=== PATIENT | female | born 1935 | race Caucasian/White ===

== ENCOUNTER 2018-03-21 18:20 | Inpatient (IN) | payer MEDICARE, MEDICAID ==
--- NOTE | 2018-03-21 18:54 | ED Physician Chart ---
ED Chief Complaint/HPI - Patient Information Date Seen:: 03/21/18 Time Seen:: 18:40 Chief Complaint:: AMS History of Present Illness:: onset x 2 days of AMS, ALOC, flank/back pain, and dysuria; no report of trauma, H/As, S/T, neck pain, cough, C/P, SOB, Abd. Pain, A/N/V/D/C, fever, chills, or bleeding Allergies:: Allergies Allergy/AdvReac Type Severity Reaction Status Date / Time Penicillins [PCN] Allergy Verified 03/21/18 18:40 Vitals:: Vital Signs - 8 hr 03/21/18 18:41 Temp 97.7 F HR 77 RR 16 BP 126/65 O2 Sat % 95 Historian:: Patient, EMS Review:: Nurse's Note Reviewed, Old Chart Reviewed, EMS run form Reviewed ED Review of Systems - Review of Systems General/Constitutional: Fever, No chills, No weight loss, Weakness, No diaphoresis, No edema, No loss of appetite Skin: No skin lesions, No rash, No bruising Head: No headache, No light-headedness Eyes: No loss of vision, No pain, No diplopia ENT: No earache, No nasal drainage, No sore throat, No tinnitus Neck: No neck pain, No swelling, No thyromegaly, No stiffness, No mass noted Cardio Vascular: No chest pain, No palpitations, No PND, No orthopnea, No edema Pulmonary: No SOB, No cough, No sputum, No wheezing GI: No nausea, No vomiting, No diarrhea, No pain, No melena, No hematochezia, No constipation, No hematemesis G/U: Dysuria, Frequency, No hematuria, No nacturia Rotary Machine Operator: No vaginal discharge, No abnormal vaginal bleed, No contraction Musculoskeletal: No bone or joint pain, No back pain, No muscle pain Endocrine: No polyuria, No polydipsia Psychiatric: No prior psych history, No depression, No anxiety, No suicidal ideation, No homicidal ideation, No auditory hallucination, No visual hallucination Hematopoietic: No bruising, No lymphadenopathy Allergic/Immuno: No urticaria, No angioedema Neurological: No syncope, No focal symptoms, Weakness, No paresthesia, No headache, No seizure, No dizziness, No confusion, No vertigo ED Past Medical History - Past Medical History Obtainable: Yes Past Medical History: HTN, Dyslipidemia, PUD/GERD, Arthritis, Dementia Family History: Diabetes Melitus, HTN Social History: , Care Facility Surgical History: None Psychiatricy History: Dementia Medication: Reviewed Family Medical History - Family Member Mother History Unknown: Yes ED Physical Exam - Physical Examination General/Constitutional: Awake, Well-developed, well-nourished, Alert, No distress, GCS 15, Non-toxic appearing, Ambulatory Head: Atraumatic Eyes: Lids, conjuctiva normal, PERRL, EOMI Skin: Nl inspection, No rash, No skin lesions, No ecchymosis, Well hydrated, No lymphadenopathy ENMT: External ears, nose nl, TM canals nl, Nasal exam nl, Lips, teeth, gums nl , Oropharynx nl, Tonsils nl Neck: Nontender, Full ROM w/o pain, No JVD, No nuchal rigidity, No bruit, No mass, No stridor Respiratory: Nl effort/Exclusion, Clear to Auscultation, No Wheeze/Rhonchi/Rales Cardio Vascular: RRR, No murmur, gallop, rubs, NL S1 S2, Carotid/Femoral/Distal pulses equal bilaterally GI: No tenderness/rebounding/guarding, No organomegaly, No hernia, Normal BS's, Nondistended, No mass/bruits, No McBurney tenderness : No CVA tenderness Extremities: No tenderness or effusion, Full ROM, normal strength in all extremities, No edema, Normal digits & nails Neuro/Psych: Alert/oriented, DTR's symmetric, Normal sensory exam, Normal motor strength, Judgement/insight normal, Mood normal, Normal gait, No focal deficits Misc: Normal back, No paraspinal tenderness ED Labs/Radiology/EKG Results - Lab Results Comments:: K+: 3.3 - Radiology Results Comments:: NAD ED Septic Shock - . Is Septic Shock (SBP<90, OR Lactate>4 mmol\L) present?: No - <6hrs of presentation: Vital Signs: Vital Signs - 8 hr 03/21/18 18:41 Temp 97.7 F HR 77 RR 16 BP 126/65 O2 Sat % 95 ED Reassessment (Disposition) - Reassessment Reassessment Condition:: Improved - Diagnosis Diagnosis:: Hypokalemia; ALOC; AMS; Dehydration; - Aftercare/Follow up Instructions Aftercare/Follow-Up Instructions:: Counseled pt regarding lab results/diagnosis & need follow up, Counseled pt & family regarding lab results/diagnosis & need follow up - Patient Disposition Discharge/Transfer:: Acute Care w/in this hosp Accepting Physician:: Dr. Cadena Time Called:: 2029 Time Responded:: 20:30 Admitted to:: Med/Surg Spoke to:: Dr. Cadena Admitting Medical Physician:: Dr. Cadena Condition at Disposition:: Stable, Improved
[2018-03-21 19:41] LABS: % BASOPHILS 0.8 % (0.0-2.0); % EOSINOPHILS 6.4 % (0.0-5.0); % MONOCYTES 9.3 % (2.0-10.0); % NEUTROPHILS 64.5 % (40.0-80.0); EOSINOPHILE ABSOLUTE 0.3 Th/cmm (0.1-0.4); HEMATOCRIT 41.3 % (41.0-60); HEMOGLOBIN 14.1 gm/dL (12-16); MEAN CELL VOLUME 90.1 fl (81-100); MEAN CORPUSCULAR HEMOGLOBIN 30.7 pg (27.0-31.0); MEAN PLATELET VOLUME 7.3 fl; MONOCYTE ABSOLUTE 0.5 Th/cmm (0.3-1.0); NEUTROPHILE ABSOLUTE 3.4 Th/cmm (1.8-8.0); PLATELET COUNT 215 Th/cmm (150-400); RED BLOOD COUNT 4.58 Mil/cmm (3.80-5.20); RED CELL DISTRIBUTION WIDTH 12.4 % (11.5-20.0); WHITE BLOOD COUNT 5.2 Th/cmm (4.8-10.8)
[2018-03-21 19:58] LABS: PROTHROMBIN TIME (TEST) 10.4 SECONDS (9.5-11.5)
[2018-03-21 20:01] LABS: ALB/GLOB RATIO 0.9 (1.0-1.8); ALBUMIN 3.4 gm/dL (3.7-5.3); ALKALINE PHOSPHATASE 83 U/L (34-104); ANION GAP 8.6 (7.0-16.0); BILIRUBIN,TOTAL 0.7 mg/dL (0.3-1.0); BUN - UREA NITROGEN 18 mg/dL (7-25); CALCIUM SERUM 8.9 mg/dL (8.6-10.3); CARBON DIOXIDE 24.7 mEq/L (21.0-31.0); CHLORIDE 107 mEq/L (98-107); CREATININE - SERUM 0.6 mg/dL (0.6-1.2); CREATININE KINASE 22 U/L (30-223); GLUCOSE 96 mg/dL (70-105); POTASSIUM SERUM 3.3 mEq/L (3.5-5.1); SGOT 13 U/L (13-39); SGPT/ALT 8 U/L (7-52); SODIUM SERUM 137 mEq/L (136-145); TOTAL PROTEIN,SERUM 7.4 gm/dL (6.0-8.3)
[2018-03-21] MEDS ORDERED: Potassium Chloride 20 mEq ER Tab PO ONE ×2 (20:31→20:36)
[2018-03-21] MEDS ORDERED: Non-Formulary Item 1 EA (Acetaminophen [Pain Reliever] 650 MG) PO PRN (23:19)
[2018-03-21] MEDS ORDERED: HYDROCODONE PO PRN (23:20)
[2018-03-21] MEDS ORDERED: Maalox 30 mL Cup PO PRN (23:20)
[2018-03-21] MEDS ORDERED: ACETAMINOPHEN PO PRN (23:20)
[2018-03-22 06:31] LABS: % BASOPHILS 0.7 % (0.0-2.0); % EOSINOPHILS 6.9 % (0.0-5.0); % LYMPHOCYTES 18.6 % (20.0-50.0); % MONOCYTES 10.6 % (2.0-10.0); % NEUTROPHILS 63.2 % (40.0-80.0); EOSINOPHILE ABSOLUTE 0.3 Th/cmm (0.1-0.4); HEMATOCRIT 38.3 % (41.0-60); LYMPHOCYTE ABSOLUTE 0.7 Th/cmm (1.5-3.0); MEAN CELL VOLUME 88.6 fl (81-100); MEAN CORPUSCULAR HEMOGLOBIN 30.1 pg (27.0-31.0); MEAN CORPUSCULAR HGB CONC 33.9 pg (28.0-36.0); MEAN PLATELET VOLUME 7.6 fl; MONOCYTE ABSOLUTE 0.4 Th/cmm (0.3-1.0); NEUTROPHILE ABSOLUTE 2.6 Th/cmm (1.8-8.0); PLATELET COUNT 205 Th/cmm (150-400); RED BLOOD COUNT 4.33 Mil/cmm (3.80-5.20); RED CELL DISTRIBUTION WIDTH 12.3 % (11.5-20.0)
[2018-03-22 06:41] LABS: ANION GAP 7.6 (7.0-16.0); BUN - UREA NITROGEN 17 mg/dL (7-25); CALCIUM SERUM 8.7 mg/dL (8.6-10.3); CARBON DIOXIDE 23.8 mEq/L (21.0-31.0); CHLORIDE 108 mEq/L (98-107); CREATININE - SERUM 0.6 mg/dL (0.6-1.2); GLUCOSE 87 mg/dL (70-105); POTASSIUM SERUM 3.4 mEq/L (3.5-5.1); SODIUM SERUM 136 mEq/L (136-145)
[2018-03-22] MEDS ORDERED: Hydrocodone/APAP 5mg/325mg Tab PO PRN ×2 (07:52→08:00)
[2018-03-22] MEDS ORDERED: PROTEIN HYDROLYS PO SCH (09:00)
[2018-03-22] MEDS ORDERED: AMINO ACIDS PO SCH (09:00)
[2018-03-22] MEDS ORDERED: D5-0.45NS 1,000 ML IV SCH (09:00)
[2018-03-22] MEDS: Pantoprazole 40 mg EC Tab PO SCH (09:42)
--- NOTE | 2018-03-22 09:51 | Diagnostic Imaging Report ---
Portable chest x-ray History: Cough Allowing for portable technique the heart size is normal. No focal pulmonary parenchymal processes. No hilar or mediastinal abnormalities. Impression: No acute abnormalities.
--- NOTE | 2018-03-22 09:53 | Diagnostic Imaging Report ---
Portable chest x-ray HISTORY: Pain There is a poor inspiration. Heart size difficult to assess. The poor inspiration has resulted in accentuation of the lower interstitial lung markings. Allowing for this factor, no focal processes are seen. Atherosclerotic calcification seen in the aorta. IMPRESSION: 1. Allowing for a poor inspiration, no acute focal pulmonary processes
[2018-03-22] MEDS: D5-0.45NS w/10 mEq KCL 1,000 ML IV SCH (11:17)
--- NOTE | 2018-03-22 14:39 | History & Physical ---
ADMIT DATE: 03/21/2018 CHIEF COMPLAINT: Severe weakness, worsening confusion, and low back pain by the nursing staff. HISTORY OF PRESENT ILLNESS: The patient is an 83-year-old female admitted from Emergency Room due to multiple medical conditions. The patient was very weak with failure to thrive and complained severe low back pain and low abdominal pain in the usp for the past few days with progressive worsening. Her mental status worsened more significantly in the past 1 or 2 days. She is very lethargic. There is suspicion for urinary tract infection, but the patient refused to have urine collected either naturally or straight cath. A chest x-ray was not done because the patient refused ____ from confusion. Due to poor p.o. intake, the patient's potassium was low at 3.3 in the Emergency Room and she was supplemented. The patient's troponin was less than 0.01. PAST MEDICAL HISTORY: Including hypertension, degenerative joint disease, gastroesophageal reflux disease, constipation, urinary tract infection, and pneumonia. REVIEW OF SYSTEMS: This cannot be reliably obtained as the patient is confused and refused to answer questions or is unable to answer questions. PHYSICAL EXAMINATION: GENERAL: Well-developed, thin female, in no acute distress. SKIN: Warm and dry. VITAL SIGNS: Basically stable. HEENT: Normocephalic and atraumatic. Pupils are equal, round, and react to light and accommodation. CHEST: Symmetrical. LUNGS: Few rhonchi appreciated. CARDIAC: Normal sinus rhythm. S1 and S2. ABDOMEN: Benign, soft, and nontender. There is mild tenderness in the suprapubic area. Bowel sounds positive. EXTREMITIES: No clubbing, cyanosis, or edema . PSYCHIATRIC: Linear and logical. NEUROLOGICAL: Unremarkable. LABORATORY DATA: Labs reviewed, seen from computer. Potassium 3.3. Troponin less than 0.01, albumin 3.4. ASSESSMENT AND PLAN: 1. Altered level of consciousness intermittently in the past few days with progressive worsening: Unclear etiology, but for her age is probably due to urinary tract infection and/or pneumonia; however, the patient is still confused and she refused to have UA done, a chest x-ray and I have tried to convince the patient and I am not clear if she really understands this. I ordered blood culture. 2. Severe weakness: Fall precautions and physical therapy. 3. Failure to thrive: Workup in progress. 4. Suprapubic mild abdominal pain: I ordered UA, urine culture, and CEA and CA-125. 5. Hypokalemia: Due to poor p.o. intake and supplemented, we will repeat to make sure the patient is properly supplemented. 6. Low back pain, probably due to sciatic related to her age. 7. History of hypertension. 8. History of urinary tract infection: The patient had refused to her urine collection initially. 9. 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 10. DVT prophylaxis. [facility]# [id number]
--- NOTE | 2018-03-22 23:18 | Progress Notes ---
DATE: 03/22/2018 SUBJECTIVE: The patient is very confused and lethargic, afebrile. OBJECTIVE: VITAL SIGNS: Basically stable. HEENT: Normocephalic, atraumatic. Pupils equal, round and react to light and accommodation. CHEST: Symmetrical. LUNGS: Few rhonchi appreciated. CARDIAC: Normal sinus rhythm, S1, S2. ABDOMEN: Benign, soft, nontender. EXTREMITIES: No clubbing or cyanosis. Edema bilaterally appreciated 2+ equally. NEUROLOGICAL: Unremarkable. LABORATORY DATA: Reviewed. Significant for leukopenia with potassium 3.4, which is after 40 mEq KCl given in the Emergency Room. Additionally, the patient's white count decreased to 4000 from 5200 in the Emergency Room here. ASSESSMENT AND PLAN: 1. Acute leukopenia: Rule out sepsis and order blood culture and urine culture and IV fluid. We will repeat CBC in the morning. Check lactic acid level as well. 2. Hypokalemia: She will get IV fluid D5 half normal saline with 5 mEq KCl at 80 mL per hour. 3. Failure to thrive: Workup in progress. 4. Severe weakness: Fall precautions and physical therapy. 5. DVT prophylaxis. 6. Low back pain, improving. 7. Altered level of conscious due to metabolic encephalopathy and dementia. 8. Early dementia: Add Aricept to the patient's current medication regimen. 9. History of hypertension. 10. History of urinary tract infection and pneumonia. JOB# [id number]
[2018-03-23] MEDS: D5-0.45NS w/10 mEq KCL 1,000 ML IV SCH ×2 (03:00→15:45)
[2018-03-23 06:59] LABS: % BASOPHILS 0.5 % (0.0-2.0); % LYMPHOCYTES 19.1 % (20.0-50.0); % MONOCYTES 9.1 % (2.0-10.0); % NEUTROPHILS 66.3 % (40.0-80.0); EOSINOPHILE ABSOLUTE 0.2 Th/cmm (0.1-0.4); HEMATOCRIT 39.1 % (41.0-60); HEMOGLOBIN 13.5 gm/dL (12-16); LYMPHOCYTE ABSOLUTE 0.8 Th/cmm (1.5-3.0); MEAN CELL VOLUME 89.6 fl (81-100); MEAN CORPUSCULAR HEMOGLOBIN 30.9 pg (27.0-31.0); MEAN CORPUSCULAR HGB CONC 34.5 pg (28.0-36.0); MEAN PLATELET VOLUME 7.7 fl; MONOCYTE ABSOLUTE 0.4 Th/cmm (0.3-1.0); NEUTROPHILE ABSOLUTE 2.8 Th/cmm (1.8-8.0); PLATELET COUNT 217 Th/cmm (150-400); RED BLOOD COUNT 4.37 Mil/cmm (3.80-5.20); RED CELL DISTRIBUTION WIDTH 12.2 % (11.5-20.0); WHITE BLOOD COUNT 4.2 Th/cmm (4.8-10.8)
[2018-03-23 07:22] LABS: ANION GAP 7.8 (7.0-16.0); BUN - UREA NITROGEN 14 mg/dL (7-25); CALCIUM SERUM 8.6 mg/dL (8.6-10.3); CARBON DIOXIDE 25.3 mEq/L (21.0-31.0); CHLORIDE 106 mEq/L (98-107); CREATININE - SERUM 0.6 mg/dL (0.6-1.2); GLUCOSE 95 mg/dL (70-105); POTASSIUM SERUM 3.1 mEq/L (3.5-5.1); SODIUM SERUM 136 mEq/L (136-145)
[2018-03-23] MEDS: Pantoprazole 40 mg EC Tab PO SCH (09:42)
[2018-03-23] MEDS ORDERED: D5-0.45NS 1,000 ML IV SCH (23:00)
[2018-03-24] MEDS: Levofloxacin 500mg/100mL 500 MG/100 ML BAG IV SCH ×2 (00:38→23:08)
--- NOTE | 2018-03-24 01:27 | Progress Notes ---
DATE: 03/23/2018 SUBJECTIVE: The patient is confused, lethargic and afebrile. OBJECTIVE: VITAL SIGNS: Basically, stable. HEENT: Normocephalic and atraumatic. Pupils equal, round, reactive to light and accommodation. CHEST: Symmetrical. LUNGS: Few wheezing appreciated with rhonchi at the lung base. CARDIAC: Normal sinus rhythm. S1 and S2. ABDOMEN: Benign, soft and nontender. EXTREMITIES: No clubbing, cyanosis or edema. Bilateral ____ equally. NEUROLOGICAL: Unremarkable. LABORATORY TESTING: Reviewed as seen from computer. Positive MRSA nares. Potassium 3.1 despite on IV fluid with potassium supplement. ASSESSMENT AND PLAN: 1. Hypokalemia: 40 mEq KCl p.o. x 1 ordered and we will increase potassium containing IV fluid. 2. Altered level of consciousness due to metabolic encephalopathy and dementia. 3. Noncompliance : Education provided daily basis with some effect. 4. Failure to thrive: Multifactorial. 5. Leukopenia, slightly improving. We will repeat CBC in the morning as well. 6. Low back pain, improving. 7. Early dementia. 8. History of hypertension. JOB# [id number]
[2018-03-24 05:58] LABS: URINE SOURCE MIDSTREAM
[2018-03-24 06:19] LABS: URINE BILIRUBIN NEGATIVE (NEGATIVE); URINE BLOOD NEGATIVE (NEGATIVE); URINE GLUCOSE (UA) NEGATIVE (NEGATIVE); URINE KETONE NEGATIVE (NEGATIVE); URINE LEUKOCYTE ESTERASE NEGATIVE (NEGATIVE); URINE NITRATE NEGATIVE (NEGATIVE); URINE PH 6.5 (4.6 - 8.0); URINE PROTEIN NEGATIVE (NEGATIVE); URINE UROBILINOGEN 0.2 E.U./dL (0.2 - 1.0)
[2018-03-24 06:42] LABS: URINE CLARITY CLEAR (CLEAR); URINE COLOR YELLOW
[2018-03-24 07:05] LABS: % BASOPHILS 1.1 % (0.0-2.0); % EOSINOPHILS 4.9 % (0.0-5.0); % MONOCYTES 10.1 % (2.0-10.0); % NEUTROPHILS 67.9 % (40.0-80.0); BASOPHILE ABSOLUTE 0.1 Th/cumm (0-0.2); EOSINOPHILE ABSOLUTE 0.2 Th/cmm (0.1-0.4); HEMOGLOBIN 13.2 gm/dL (12-16); LYMPHOCYTE ABSOLUTE 0.8 Th/cmm (1.5-3.0); MEAN CELL VOLUME 89.3 fl (81-100); MEAN CORPUSCULAR HEMOGLOBIN 30.9 pg (27.0-31.0); MEAN CORPUSCULAR HGB CONC 34.7 pg (28.0-36.0); MEAN PLATELET VOLUME 7.2 fl; MONOCYTE ABSOLUTE 0.5 Th/cmm (0.3-1.0); NEUTROPHILE ABSOLUTE 3.2 Th/cmm (1.8-8.0); PLATELET COUNT 216 Th/cmm (150-400); RED BLOOD COUNT 4.26 Mil/cmm (3.80-5.20); RED CELL DISTRIBUTION WIDTH 12.1 % (11.5-20.0); WHITE BLOOD COUNT 4.8 Th/cmm (4.8-10.8)
[2018-03-24 08:09] LABS: CA 125 (OVARIAN) 23.4 U/mL (0.0-38.1); CARCINOEMBRYONIC ANTIGEN 1.7 ng/mL (0.0-4.7)
[2018-03-24] MEDS: Pantoprazole 40 mg EC Tab PO SCH (08:14)
[2018-03-24] MEDS ORDERED: Potassium Chloride 20 mEq ER Tab PO ONE (09:00)
[2018-03-24] MEDS ORDERED: Probiotic Screen MC PRN (09:30)
[2018-03-24] MEDS: D5-0.45NS w/10 mEq KCL 1,000 ML IV SCH (16:34)
[2018-03-25] MEDS: D5-0.45NS w/10 mEq KCL 1,000 ML IV SCH ×2 (06:23→18:17)
[2018-03-25] MEDS: Pantoprazole 40 mg EC Tab PO SCH (09:56)
[2018-03-25] MEDS: Lactobacillus Rhamnosus GG 15 Billion CFU CAP.SPRINK PO SCH (09:56)
[2018-03-26] MEDS: Levofloxacin 500mg/100mL 500 MG/100 ML BAG IV SCH (00:23)
[2018-03-26 06:29] LABS: % BASOPHILS 0.1 % (0.0-2.0); % EOSINOPHILS 6.3 % (0.0-5.0); % LYMPHOCYTES 17.8 % (20.0-50.0); % NEUTROPHILS 61.8 % (40.0-80.0); EOSINOPHILE ABSOLUTE 0.3 Th/cmm (0.1-0.4); HEMATOCRIT 38.3 % (41.0-60); LYMPHOCYTE ABSOLUTE 0.9 Th/cmm (1.5-3.0); MEAN CELL VOLUME 90.1 fl (81-100); MEAN CORPUSCULAR HEMOGLOBIN 30.6 pg (27.0-31.0); MONOCYTE ABSOLUTE 0.7 Th/cmm (0.3-1.0); NEUTROPHILE ABSOLUTE 3.1 Th/cmm (1.8-8.0); PLATELET COUNT 202 Th/cmm (150-400); RED BLOOD COUNT 4.25 Mil/cmm (3.80-5.20); RED CELL DISTRIBUTION WIDTH 12.3 % (11.5-20.0)
[2018-03-26 07:34] LABS: ANION GAP 7.7 (7.0-16.0); BUN - UREA NITROGEN 10 mg/dL (7-25); CALCIUM SERUM 8.7 mg/dL (8.6-10.3); CHLORIDE 107 mEq/L (98-107); CREATININE - SERUM 0.7 mg/dL (0.6-1.2); GLUCOSE 95 mg/dL (70-105); POTASSIUM SERUM 3.7 mEq/L (3.5-5.1); SODIUM SERUM 136 mEq/L (136-145)
[2018-03-26] MEDS: D5-0.45NS w/10 mEq KCL 1,000 ML IV SCH ×2 (08:36→18:11)
[2018-03-26] MEDS: Pantoprazole 40 mg EC Tab PO SCH (09:52)
[2018-03-26] MEDS: Lactobacillus Rhamnosus GG 15 Billion CFU CAP.SPRINK PO SCH (09:53)
[2018-03-27] MEDS: Levofloxacin 500mg/100mL 500 MG/100 ML BAG IV SCH (00:04)
[2018-03-27] MEDS: Lactobacillus Rhamnosus GG 15 Billion CFU CAP.SPRINK PO SCH (10:07)
[2018-03-27] MEDS: Pantoprazole 40 mg EC Tab PO SCH (10:08)
--- NOTE | 2018-03-27 18:55 | Progress Notes ---
DATE: 03/26/2018 SUBJECTIVE: The patient is confused, agitated from time to time. OBJECTIVE: VITAL SIGNS: Basically stable. HEENT: Normocephalic, atraumatic. Pupils equal, round, react to light and accommodation. CHEST: Symmetrical. LUNGS: Few wheezing appreciated. CARDIAC: Normal sinus rhythm. S1, S2. ABDOMEN: Benign, soft, nontender. EXTREMITIES: No clubbing, cyanosis, edema bilaterally. . NEUROLOGICAL: Unremarkable. LABORATORY DATA: Reviewed. ASSESSMENT AND PLAN: 1. Altered level of consciousness on and off. We will observe closely. 2. Agitation: Ativan p.r.n. 3. Failure to thrive, improving. 4. Hypokalemia, corrected. 5. Leukopenia, resolved. 6. Dementia: Probably due to Alzheimer disease. I will start the patient on Aricept and Namenda. 7. Hypertension, controlled. 8. DVT prophylaxis. 9. Discharge planning. 10. Noncompliance: Education provided. JOB# [id number]
--- NOTE | 2018-03-27 23:56 | Discharge Summary ---
DATE OF DISCHARGE: 03/27/2018 FINAL DIAGNOSES: 1. Altered level of consciousness, improving. 2. Severe weakness stabilizing. 3. Failure to thrive improved. 4. Sciatic with severe low back pain, improving. 5. Hypokalemia, supplemented. 6. Leukopenia, resolved. 7. Noncompliance with education provided. 8. Chronic pain syndrome, improving. HOSPITAL COURSE: The patient is an 83-year-old female admitted today due to altered level of consciousness, severe weakness with failure to thrive and the patient also has severe hypokalemia due to poor p.o. intake. She also complained of severe low back pain in the snf, but the pain improved afterwards. On admission, the patient's white count was low, but she was ruled out for sepsis. The urine and blood culture were both negative. The patient was confused, noncompliance from time to time. Due to hospitalization the patient provided with some benefit. Due to anxiety and depression, and hallucinations the patient is accepted to [facility]. DISCHARGE CONDITION: Stable. DISPOSITION: [facility]. DISCHARGE MEDICATION: Continue medication from [facility]. DIET: Cardiac, soft diet. ACTIVITY: Bed rest with physical therapy. FOLLOWUP: Follow up soon with a [facility] Unit. [facility]# [id number]
== END 2018-03-27 08:20 | DRG 640 ==
LOC: ER 18:20 → MSI 20:32
PROVIDERS: ADMIT Internal Medicine; ATTEND Internal Medicine
DX: E87.6 Hypokalemia (principal); G93.41 Metabolic encephalopathy; R62.7 Adult failure to thrive; I10 Essential (primary) hypertension; D72.819 Decreased white blood cell count, unspecified; M19.90 Unspecified osteoarthritis, unspecified site; K21.9 Gastro-esophageal reflux disease without esophagitis; M54.42 Lumbago with sciatica, left side; M54.41 Lumbago with sciatica, right side; E78.5 Hyperlipidemia, unspecified; G89.4 Chronic pain syndrome; F41.9 Anxiety disorder, unspecified; F32.9 Major depressive disorder, single episode, unspecified; F03.90 Unspecified dementia, unspecified severity, without behavioral disturbance, psychotic disturbance, mood disturbance, and anxiety; Z53.29 Procedure and treatment not carried out because of patient's decision for other reasons; E86.0 Dehydration; Z88.0 Allergy status to penicillin; Z87.11 Personal history of peptic ulcer disease; Z83.3 Family history of diabetes mellitus; Z82.49 Family history of ischemic heart disease and other diseases of the circulatory system; Z71.89 Other specified counseling; Z87.01 Personal history of pneumonia (recurrent); Z87.440 Personal history of urinary (tract) infections; Z91.19 Patient's noncompliance with other medical treatment and regimen
CPT/HCPCS: 36415-UA; 71045-TC; 80048-TC; 80053-TC; 81003-TC; 82378-90; 82550-TC; 83605; 83880-TC; 84443-TC; 84484-TC; 85025-TC; 85610-TC; 85730-TC; 86304-90; 87086-90; 93005; 97530; J1956; J2060; X3904; Z7610

== ENCOUNTER 2018-03-27 21:05 | Inpatient (IN) | payer MEDICARE, MEDICAID ==
[2018-03-27 22:00] VITALS: BP 121/67
[2018-03-27] MEDS ORDERED: Hydrocodone/APAP 5mg/325mg Tab PO PRN ×2 (22:38→22:47)
[2018-03-27] MEDS ORDERED: Maalox 30 mL Cup PO PRN (22:48)
[2018-03-28] MEDS: Pantoprazole 40 mg EC Tab PO SCH (06:34)
[2018-03-28] MEDS ORDERED: AMINO ACIDS PO SCH (09:00)
[2018-03-28] MEDS ORDERED: PROTEIN HYDROLYS PO SCH (09:00)
[2018-03-28] MEDS: Multivitamin Tab PO SCH (11:41)
[2018-03-28] MEDS: Lactobacillus Rhamnosus GG 15 Billion CFU CAP.SPRINK PO SCH (11:44)
--- NOTE | 2018-03-28 23:28 | History & Physical ---
ADMIT DATE: 03/28/2018 CHIEF COMPLAINT: Anxiety, depression, weakness, and low back pain. HISTORY OF PRESENT ILLNESS: The patient is an 83-year-old female admitted to Geropsych Unit of [facility] due to anxiety, depression, and psychosis. The patient is very anxious and depressed from time to time and also has some hallucination from time to time. She is very weak and complaining of severe low back pain from time to time. The patient definitely is confused as well from time to time. She is very weak with failure to thrive. For the past week, the patient also had hypokalemia, which was supplemented. She also has a history of hypertension and urinary tract infection as well as dementia. PAST MEDICAL HISTORY: Hypertension, hypokalemia, mild dementia, urinary tract infection, anxiety, depression, and mild psychosis. PAST SURGICAL HISTORY: Denies significant past surgical history. MEDICATIONS: See medication reconciliation list. ALLERGIES: PENICILLIN. FAMILY HISTORY: Noncontributory. SOCIAL HISTORY: No history of tobacco, alcohol, or IV drug abuse. REVIEW OF SYSTEMS: As per HPI. PHYSICAL EXAMINATION: GENERAL: Well-developed and thin female in no acute distress. SKIN: Warm and dry. VITAL SIGNS: Basically stable. HEENT: Normocephalic and atraumatic. Pupils equal, round, and react to light and accommodation. CHEST: Symmetrical. LUNGS: Clear to auscultation bilaterally. HEART: Normal sinus rhythm, S1 and S2. ABDOMEN: Benign, soft, and nontender. EXTREMITIES: No clubbing, cyanosis, or edema ____. NEUROLOGICAL: Unremarkable. LABORATORY DATA: Ordered. ASSESSMENT AND PLAN: 1. Altered level of consciousness, on and off: We will observe her closely. 2. Anxiety/depression: Psychiatry consultation, close observation, and adjust medications as needed. 3. Failure to thrive. 4. Urinary tract infection: We will repeat a UA to make sure the patient is clear for urinary tract infection. 5. History of hypertension: Close monitoring. 6. Dementia/early Alzheimer disease: Continue Aricept. 7. Degenerative joint disease. 8. Chronic pain syndrome: Continue pain medication, adjust accordingly. 9. Insomnia. 10. Gastroesophageal reflux disease: Continue proton pump inhibitor. 11. Deep venous thrombosis prophylaxis. JOB# [id number]
--- NOTE | 2018-03-29 03:38 | Psychosocial Evaluation ---
DATE OF SERVICE: 03/28/2018 MENTAL STATUS EXAM AGE: 83. SEX: Female. PHYSICIAN: Dr. Laurent. CHIEF COMPLAINT: Confusion and severe weakness. HISTORY OF PRESENT ILLNESS: The patient is an 83-year-old female who was admitted to the hospital from the Emergency Room because of multiple medical conditions and after the patient was medically stable in the med-surg unit, was transferred to Geropsych Unit to continue her treatment. The patient has been feeling very weak with failure, failure to thrive and also the patient has been complaining of low back pain and low abdominal pain in the care home where she has been living. The patient has been having this complaint for several days. Also, her mental status has been getting worse and the patient seems to be lethargic. The patient also possibly has had urinary tract infection and the patient was refusing to give any urine samples. Also, the patient has refused to have chest x-ray and was uncooperative in the care home where she lives. Also, her appetite has been much decreased as well as her energy level has been very low. The patient has been depressed. She also has been confused and unable to answer questions coherently because of her weakness and confusion. PAST PSYCHIATRIC HISTORY: The patient has a history of what seems to be dementia. PAST MEDICAL HISTORY: The patient has hypertension, gastroesophageal reflux disease, urinary tract infection, pneumonia, constipation, and degenerative joint disease. PAST MEDICAL HISTORY: The patient is confused and refused to answer any of the questions related to other medical problems. SOCIAL HISTORY: The patient lives in a care home. Anxious. Slightly confused and unable to answer any of my questions coherently. Poor insight and poor judgment. ASSESSMENT: PRIMARY DIAGNOSIS: Major depression, severe, recurrent, with psychotic features. SECONDARY DIAGNOSIS: Dementia, moderate to severe, with psychotic features. MENTAL STATUS EXAMINATION: The patient appears slightly older than stated age. Anxious. Flat affect. In a depressed mood. Thought processes are with poverty of speech. The patient denies any hallucinations or delusions, but actively responding to stimuli. The patient did not answer question regarding suicide or homicide. The patient is alert and disoriented to time, place, and person, but oriented to the situation. Impaired immediate, and recent memory, but intact remote memory. Poor insight and poor judgment. TREATMENT PLAN: We will monitor the patient's behavior closely. We will start the patient on Remeron at a dose of 7.5 mg and will adjust the dose. Also, will work on her ineffective coping and will evaluate her condition further. ESTIMATED LENGTH OF STAY: 5-7 days. PATIENT STRENGTHS AND WEAKNESSES: The patient's strength is that she is cooperative and compliant with medications. Weaknesses are ineffective coping. AFTER DISCHARGE PLAN: Outpatient treatments and followup will continue as an outpatient. CRITERIA FOR DISCHARGE: The patient will not be as depressed and will stabilize psychotropic medications and will establish outpatient treatment plans. JOB# [id number]
[2018-03-29] MEDS: Pantoprazole 40 mg EC Tab PO SCH (07:02)
[2018-03-29 08:29] LABS: % BASOPHILS 0.3 % (0.0-2.0); % EOSINOPHILS 6.2 % (0.0-5.0); % LYMPHOCYTES 14.7 % (20.0-50.0); % MONOCYTES 8.9 % (2.0-10.0); % NEUTROPHILS 69.9 % (40.0-80.0); EOSINOPHILE ABSOLUTE 0.3 Th/cmm (0.1-0.4); HEMATOCRIT 41.9 % (41.0-60); LYMPHOCYTE ABSOLUTE 0.7 Th/cmm (1.5-3.0); MEAN CELL VOLUME 90.5 fl (81-100); MEAN CORPUSCULAR HEMOGLOBIN 30.3 pg (27.0-31.0); MEAN CORPUSCULAR HGB CONC 33.5 pg (28.0-36.0); MEAN PLATELET VOLUME 7.5 fl; MONOCYTE ABSOLUTE 0.5 Th/cmm (0.3-1.0); NEUTROPHILE ABSOLUTE 3.6 Th/cmm (1.8-8.0); PLATELET COUNT 241 Th/cmm (150-400); RED BLOOD COUNT 4.64 Mil/cmm (3.80-5.20); RED CELL DISTRIBUTION WIDTH 12.5 % (11.5-20.0); WHITE BLOOD COUNT 5.1 Th/cmm (4.8-10.8)
[2018-03-29 09:04] LABS: ALB/GLOB RATIO 0.9 (1.0-1.8); ALBUMIN 3.5 gm/dL (3.7-5.3); ALKALINE PHOSPHATASE 68 U/L (34-104); ANION GAP 8.7 (7.0-16.0); BUN - UREA NITROGEN 19 mg/dL (7-25); CALCIUM SERUM 9.2 mg/dL (8.6-10.3); CARBON DIOXIDE 27.1 mEq/L (21.0-31.0); CHLORIDE 103 mEq/L (98-107); CREATININE - SERUM 0.7 mg/dL (0.6-1.2); GLUCOSE 97 mg/dL (70-105); MAGNESIUM 2.2 mg/dL (1.9-2.7); POTASSIUM SERUM 3.8 mEq/L (3.5-5.1); SGOT 13 U/L (13-39); SGPT/ALT 7 U/L (7-52); SODIUM SERUM 135 mEq/L (136-145); TOTAL PROTEIN,SERUM 7.3 gm/dL (6.0-8.3)
[2018-03-29] MEDS: Lactobacillus Rhamnosus GG 15 Billion CFU CAP.SPRINK PO SCH (10:53)
[2018-03-29] MEDS: Escitalopram Oxalate 5 mg Tab PO SCH (10:55)
[2018-03-29] MEDS: Multivitamin Tab PO SCH (10:56)
--- NOTE | 2018-03-29 23:39 | Progress Notes ---
DATE: SUBJECTIVE: Chart reviewed and the patient interviewed. Also discussed the patient's condition with the staff and reviewed records and labs. The patient is still depressed and withdrawn. She is also interacting minimally with peers and with others. The patient also is still feeling hopeless and helpless. Also, the thought processes are with poverty of speech. She also wants to be left alone. Otherwise, the patient is interacting more. The patient also is still restless. Otherwise, the patient is cooperative in regard to taking her medications. ASSESSMENT: The patient is still depressed. TREATMENT PLAN: We will continue monitoring her behavior closely. Also, we will start the patient on Lexapro 5 mg everyday and will work on behavior modifications and followup. [facility]# [id number]
[2018-03-30] MEDS: Pantoprazole 40 mg EC Tab PO SCH (06:39)
[2018-03-30] MEDS: Lactobacillus Rhamnosus GG 15 Billion CFU CAP.SPRINK PO SCH (09:22)
[2018-03-30] MEDS: Multivitamin Tab PO SCH (09:22)
[2018-03-30] MEDS: Escitalopram Oxalate 5 mg Tab PO SCH (09:22)
--- NOTE | 2018-03-30 19:46 | Progress Notes ---
DATE: 03/29/2018 SUBJECTIVE: The patient is lethargic, confused, agitated from time to time. OBJECTIVE: VITAL SIGNS: Basically stable. HEENT: Normocephalic, atraumatic. Pupils equal, round, react to light and accommodation. CHEST: Symmetrical. LUNGS: Clear to auscultation bilaterally. CARDIAC: Normal sinus rhythm. S1, S2. ABDOMEN: Benign, soft, nontender. EXTREMITIES: No clubbing, cyanosis, edema . NEUROLOGIC: Unremarkable. LABORATORY DATA: Reviewed as seen from the computer. ASSESSMENT AND PLAN: 1. Failure to thrive: Multifactorial. 2. Altered level of consciousness on and off: We will observe closely. 3. Anxiety, depression: Stable today. 4. History of psychosis: Close monitoring. 5. Degenerative joint disease. 6. Mild dementia/Alzheimer disease: Continue Aricept. 7. Insomnia: Improving. 8. Chronic pain syndrome due to degenerative joint disease and degenerative disk disease. Adjust medication as needed. 9. DVT prophylaxis. JOB# [id number]
--- NOTE | 2018-03-30 21:57 | Progress Notes ---
DATE: SUBJECTIVE: Chart reviewed and the patient interviewed. Also discussed the patient's condition with the staff and reviewed records and labs. The patient seems to be slightly calmer, but she is still confused and still has episodes of agitation and irritability. The patient also is still confused. The patient also still needs lots of redirections. She also still seems to be suspicious and paranoid and easily agitated. Otherwise, the patient is compliant with taking her medications with no side effects of medications. The patient continued to take Lexapro 5 mg every day as well as Aricept 10 mg. ASSESSMENT: The patient is still confused, psychotic, and depressed. TREATMENT PLAN: Continue to monitor her behavior and her condition closely and continue adjusting psychotropic medications and follow up closely. [facility]# [id number]
--- NOTE | 2018-03-31 03:40 | Progress Notes ---
DATE: 03/30/2018 SUBJECTIVE: The patient is confused, agitated, afebrile. OBJECTIVE: VITAL SIGNS: Basically stable. HEENT: Normocephalic, atraumatic. Pupils equal, round, react to light and accommodation. CHEST: Symmetrical. LUNGS: Clear to auscultation bilaterally. CARDIAC: Normal sinus rhythm. S1, S2. ABDOMEN: Benign, soft, nontender. EXTREMITIES: No clubbing, cyanosis or edema, bilaterally . NEUROLOGIC: Unremarkable. LABORATORY: Reviewed. ASSESSMENT AND PLAN: 1. Insomnia: May need to adjust patient's medication. For now, we will observe. 2. Failure to thrive: Multifactorial, but slightly improving. 3. Altered level of consciousness on and off. We will observe closely. 4. Anxiety/depression: Close monitoring for now. 5. History of psychosis: Psychiatrist consultation appreciated. 6. Chronic pain syndrome with degenerative joint disease and degenerative disk disease: Adjust medication as needed. 7. DVT prophylaxis. JOB# [id number]
[2018-03-31] MEDS: Pantoprazole 40 mg EC Tab PO SCH (06:32)
[2018-03-31] MEDS: Lactobacillus Rhamnosus GG 15 Billion CFU CAP.SPRINK PO SCH (08:55)
[2018-03-31] MEDS: Escitalopram Oxalate 5 mg Tab PO SCH (08:55)
[2018-03-31] MEDS: Multivitamin Tab PO SCH (08:55)
--- NOTE | 2018-03-31 21:26 | Progress Notes ---
DATE: 03/31/[address] Laurent. SUBJECTIVE: Case discussed with staff of the patient, reviewed records. This is an 83-year-old female who was admitted on 03/27/2018. She was confused, very depressed. She came from the Emergency Room because of multiple medical conditions and after she was medically stable in the med-surg unit, she was transferred to [facility] and continued treatment. The patient is feeling very weak, failure to thrive. Also, the patient has been complaining of low back pain and low abdominal pain in the retirement where she has been living, having does complain of several days. Her mental status has been getting worse. The patient is lethargic upon admission, probably had urinary tract infection. She refusing to give any urine sample, refused to have a chest x-ray, was uncooperative with the retirement. Appetite is much decreased. The patient has a history of dementia. The patient also has multiple medical conditions including hypertension and GERD. ALLERGIES: SHE IS ALLERGIC TO PENICILLIN. CURRENT MEDICATIONS: Amlodipine 10 mg daily, bisacodyl 10 mg daily, and Aricept 10 mg at bedtime. Lexapro was initiated on 03/29/2018, at 5 mg daily. She was on hydrocodone/APAP 1.5 tablet every 4 hours as needed, Ativan ____ as needed, metoprolol 25 mg twice a day, multivitamins 1 tablet daily, Protonix 40 mg before food, Ambien 5 mg at bedtime. ASSESSMENT AND PLAN: The patient continues to have low energy, low motivation, hardly says anything, easily overwhelmed. She is a high fall risk because of her failure to thrive, weakness and the medications. She is very depressed, unpredictable, impulsive, unable to participate in meaningful conversation or make safe plan for self-care. She sat on the dining table, hardly ate anything and we will continue to work with the patient in group therapy, milieu therapy, and adjust the medications as needed. JOB# [id number]
--- NOTE | 2018-04-01 04:36 | Progress Notes ---
DATE: 03/31/2018 SUBJECTIVE: The patient is confused, agitated from time to time. OBJECTIVE: VITAL SIGNS: Stable. HEENT: Normocephalic, atraumatic. Pupils equal, round, react to light and accommodation. CHEST: Symmetrical. LUNGS: Clear to auscultation bilaterally. CARDIAC: Normal sinus rhythm. S1, S2. ABDOMEN: Benign, soft, nontender. EXTREMITIES: No clubbing, cyanosis, edema bilaterally . NEUROLOGIC: Unremarkable. LABORATORY DATA: Reviewed. ASSESSMENT AND PLAN: 1. Chronic pain syndrome, adjust medications as needed. 2. Sciatica: Degenerative joint disk disease, radiographically no apparent fracture or dislocation. 3. Insomnia, improving. 4. Failure to thrive. 5. Altered level of consciousness, observe closely. 6. Agitation and anxiety: Close monitor and adjust medications as needed. 7. DVT prophylaxis. 8. Mild psychosis: Psychiatrist is on the case and appreciated. JOB# [id number]
[2018-04-01] MEDS: Pantoprazole 40 mg EC Tab PO SCH (06:52)
[2018-04-01] MEDS: Multivitamin Tab PO SCH (09:18)
[2018-04-01] MEDS: Lactobacillus Rhamnosus GG 15 Billion CFU CAP.SPRINK PO SCH (09:18)
[2018-04-01] MEDS: Escitalopram Oxalate 5 mg Tab PO SCH (09:18)
--- NOTE | 2018-04-01 21:05 | Progress Notes ---
DATE: 04/01/2018 SUBJECTIVE: Case discussed with staff of the patient, reviewed records. The patient continues to be unpredictable, impulsive, continues to have poor insight. She continues to complain of lower back pain, abdominal pain. Continues to have poor insight, staying in bed mostly, she is sleeping. Her sleep and appetite varies. Continues to be unpredictable and impulsive, unable to express herself fully though she can verbalize a few words, yet, her affect is flat. She is demented, confused. No side effects of the medication, no sedation, no nausea. She is also demented and we will continue outpatient group therapy, milieu therapy, and adjust the medications as needed. JOB# [id number]
--- NOTE | 2018-04-02 02:47 | Progress Notes ---
DATE: 04/01/2018 SUBJECTIVE: The patient is confused, agitated from time to time. OBJECTIVE: VITAL SIGNS: Basically stable. HEENT: Normocephalic, atraumatic. Pupils equal, round, and reactive to light and accommodation. CHEST: Symmetrical. LUNGS: Clear to auscultation bilaterally. CARDIAC: Normal sinus rhythm. S1, S2. ABDOMEN: Benign, soft, nontender. EXTREMITIES: No clubbing, cyanosis, edema bilaterally, 2+. NEUROLOGIC: Unremarkable. LABORATORY DATA: Reviewed. ASSESSMENT AND PLAN: 1. Failure to thrive: Observe closely. Workup is in progress. 2. Altered level of consciousness, improving. 3. Chronic pain syndrome. Adjust medications as needed. 4. Sciatica due to degenerative disk disease. 5. Anxiety and depression: Close monitor and adjust medication as needed. 6. Mild psychosis. 7. DVT prophylaxis. JOB# [id number]
[2018-04-02] MEDS: Pantoprazole 40 mg EC Tab PO SCH (06:46)
[2018-04-02] MEDS ORDERED: Escitalopram Oxalate 5 mg Tab PO SCH (10:00)
[2018-04-02] MEDS: Multivitamin Tab PO SCH (18:25)
[2018-04-02] MEDS: Lactobacillus Rhamnosus GG 15 Billion CFU CAP.SPRINK PO SCH (18:25)
--- NOTE | 2018-04-02 23:27 | Progress Notes ---
DATE: 04/02/2018 SUBJECTIVE: The patient is confused, agitated from time to time. OBJECTIVE: VITAL SIGNS: Basically stable. HEENT: Normocephalic, atraumatic. Pupils equal, round, react to light and accommodation. CHEST: Symmetrical. LUNGS: Few wheezing appreciated. HEART: Normal sinus rhythm. S1, S2. ABDOMEN: Benign, soft, nontender. EXTREMITIES: No clubbing, cyanosis or edema bilaterally 2+ . NEUROLOGIC: Unremarkable. LABORATORY DATA: Reviewed. ASSESSMENT AND PLAN: 1. Altered level of consciousness due to metabolic encephalopathy, dementia. We will observe closely. 2. Failure to thrive: Somewhat improving. 3. Chronic pain syndrome with degenerative disk disease and degenerative joint disease and will adjust medication as needed. 4. Anxiety and depression: Close monitoring. 5. Sciatica improving somewhat. 6. Mild psychosis. 7. DVT prophylaxis. JOB# [id number]
[2018-04-03] MEDS: Pantoprazole 40 mg EC Tab PO SCH (06:41)
[2018-04-03] MEDS: Lactobacillus Rhamnosus GG 15 Billion CFU CAP.SPRINK PO SCH (09:48)
[2018-04-03] MEDS: Multivitamin Tab PO SCH (09:48)
--- NOTE | 2018-04-03 09:56 | Progress Notes ---
DATE: 04/03/2018 Chart reviewed and the patient interviewed. Also the patient's condition with the staff and reviewed records and labs. The patient continued to be confused and forgetful. The patient needs lots of redirections and she has difficulty following the directions because of her confusion. Also, she has been having unpredictable behavior. The patient is depressed and wants to be left alone and she does not interact much with peers and with others. Also, during interview, the patient has flat affect and in a depressed mood and difficulty expressing herself all her feelings. ASSESSMENT: The patient is still depressed and confused. TREATMENT PLAN: We will continue monitoring her behavior and her condition closely. Also, we will increase Lexapro to 10 mg every day and we will continue to follow up her behavior and her condition closely. PSYCHIATRIC# [id number]
--- NOTE | 2018-04-03 20:21 | Progress Notes ---
DATE: SUBJECTIVE: Chart reviewed and the patient interviewed. Also discussed the patient's condition with the staff and reviewed records and labs. The patient continued to be easily agitated and the patient is forgetful. The patient also is still confused and still needs lots of redirections. She also is still depressed as noted and stays by herself in her room most of the time. Otherwise, the patient is compliant with taking her medications with no side effects of medications. ASSESSMENT: The patient is still depressed and is psychotic. TREATMENT PLAN: Continue to monitor her behavior and her condition closely. Also, Lexapro was increased yesterday to 10 mg every day. Continue same dose and continue to monitor her behavior closely. JOB# [id number]
--- NOTE | 2018-04-03 23:29 | Progress Notes ---
DATE: 04/03/2018 SUBJECTIVE: The patient is confused, agitated from time to time. OBJECTIVE: VITAL SIGNS: Basically stable. HEENT: Normocephalic, atraumatic. Pupils equal, round, and reactive to light and accommodation. CHEST: Symmetrical. LUNGS: Clear to auscultation bilaterally. HEART: Normal sinus rhythm. S1 and S2. ABDOMEN: Benign, soft, nontender. EXTREMITIES: No clubbing, cyanosis, or edema bilaterally, 2+ equally. NEUROLOGIC: Unremarkable. LABORATORY DATA: Reviewed. ASSESSMENT AND PLAN: 1. Failure to thrive, could be multifactorial, but somewhat improving. 2. Altered level of consciousness due to metabolic encephalopathy. 3. Dementia, observed closely. 4. Chronic pain syndrome due to degenerative joint disease and degenerative disk disease: Adjust medications as needed. 5. Anxiety and depression: Close monitoring. 6. Mild psychosis. 7. DVT prophylaxis. 8. History of constipation. 9. Mild Alzheimer disease: Continue Aricept. 10. Gastroesophageal reflux disease: Continue Protonix 40 mg daily. JOB# [id number]
[2018-04-04] MEDS: Pantoprazole 40 mg EC Tab PO SCH (06:47)
[2018-04-04] MEDS: Multivitamin Tab PO SCH (09:07)
[2018-04-04] MEDS: Lactobacillus Rhamnosus GG 15 Billion CFU CAP.SPRINK PO SCH (09:07)
[2018-04-04] MEDS: Docusate Sodium 100 mg/10 mL UD PO SCH (16:56)
--- NOTE | 2018-04-05 00:50 | Progress Notes ---
DATE: 04/04/2018 SUBJECTIVE: The patient is confused, agitated, and refusing to swallow her medication. OBJECTIVE: VITAL SIGNS: Basically Stable. HEENT: Normocephalic and atraumatic. Pupils equal, round, reactive to light and accommodation. CHEST: Symmetrical. LUNGS: Clear to auscultation bilaterally. CARDIAC: Normal sinus rhythm. S1 and S2. ABDOMEN: Benign, soft, and nontender. EXTREMITIES: No clubbing, cyanosis, or edema. NEUROLOGIC: Unremarkable. LABORATORY DATA: Reviewed. ASSESSMENT AND PLAN: 1. Dysphagia: Aspiration precaution to be emphasized and I have changed the Colace to liquid 10 mL p.o. b.i.d. 2. Altered level of consciousness: Due to metabolic encephalopathy and dementia. 3. Noncompliance: Education provided. 4. Anxiety/depression: Adjust medication and close monitoring. 5. Psychosis: Mild. 6. Alzheimer disease: Continue Aricept. 7. Deep venous thrombosis prophylaxis. JOB# [id number]
--- NOTE | 2018-04-05 01:30 | Progress Notes ---
DATE: 04/04/2018 SUBJECTIVE: Chart reviewed and the patient interviewed. Also discussed the patient's condition with the staff and reviewed records and labs. The patient is still in irritable and angry mood. The patient also is demanding. She also is still verbally abusive to staff and she is still having episodes of yelling and screaming and is still demanding. Otherwise, the patient is compliant with taking Lexapro with no side effects. ASSESSMENT: The patient is still agitated and psychotic. TREATMENT PLAN: We will continue to monitor her behavior and her condition closely. Also, we will start the patient on Abilify 5 mg everyday. Also, continue to monitor behavior and condition closely. JOB# [id number]
[2018-04-05] MEDS: Pantoprazole 40 mg EC Tab PO SCH (06:39)
[2018-04-05] MEDS: Lactobacillus Rhamnosus GG 15 Billion CFU CAP.SPRINK PO SCH (09:56)
[2018-04-05] MEDS: Multivitamin Tab PO SCH (09:56)
[2018-04-05] MEDS: Docusate Sodium 100 mg/10 mL UD PO SCH ×2 (09:58→16:28)
--- NOTE | 2018-04-06 03:17 | Progress Notes ---
DATE: 04/05/2018 SUBJECTIVE: The patient is confused, agitated from time to time. OBJECTIVE: VITAL SIGNS: Basically stable. HEENT: Normocephalic, atraumatic. Pupils equal, round, and reactive to light and accommodation. CHEST: Symmetrical. LUNGS: Clear to auscultation bilaterally. CARDIAC: Normal sinus rhythm. S1 and S2. ABDOMEN: Benign, soft, nontender. EXTREMITIES: No clubbing, cyanosis, edema bilaterally, 2+ equally. NEUROLOGICAL: Unremarkable. LABORATORY DATA: Reviewed. ASSESSMENT AND PLAN: 1. Altered level of consciousness on and off due to metabolic encephalopathy or dementia. We will observe closely. 2. Agitation on and off: Observe closely. 3. Dysphagia: Aspiration precaution to be exercised. 4. Noncompliance with education provided. 5. Anxiety/depression: Improving. 6. History of psychosis: Adjust medication. 7. Alzheimer disease: Continue Aricept. 8. DVT prophylaxis. JOB# [id number]
[2018-04-06] MEDS: Pantoprazole 40 mg EC Tab PO SCH (06:40)
[2018-04-06] MEDS: Multivitamin Tab PO SCH (08:57)
[2018-04-06] MEDS: Lactobacillus Rhamnosus GG 15 Billion CFU CAP.SPRINK PO SCH (08:58)
[2018-04-06] MEDS: Docusate Sodium 100 mg/10 mL UD PO SCH ×3 (08:59→17:05)
[2018-04-07] MEDS: Pantoprazole 40 mg EC Tab PO SCH (06:35)
[2018-04-07] MEDS: Docusate Sodium 100 mg/10 mL UD PO SCH ×3 (10:01→17:20)
[2018-04-07] MEDS: Lactobacillus Rhamnosus GG 15 Billion CFU CAP.SPRINK PO SCH (10:01)
[2018-04-07] MEDS: Multivitamin Tab PO SCH (10:01)
--- NOTE | 2018-04-07 11:08 | Progress Notes ---
DATE: 04/05/2018 SUBJECTIVE: Chart reviewed and the patient interviewed. Also discussed the patient's condition with the staff and reviewed records and labs. The patient is still anxious and is still in a depressed mood. The patient also is still easily agitated. The patient also is interacting minimally with others and wants to be left alone. ASSESSMENT: The patient is still depressed. TREATMENT PLAN: Continue to monitor behavior and condition closely. Also, working on ineffective coping and followup. JOB# [id number]
--- NOTE | 2018-04-07 11:44 | Progress Notes ---
DATE: SUBJECTIVE: Chart reviewed and the patient interviewed. Also discussed the patient's condition with the staff and reviewed records and labs. The patient is still anxious and she still wants to be left alone. The patient also is still demanding and easily irritable and agitated. The patient also had episodes of being verbally abusive to staff. Otherwise, the patient continued to comply with taking her medications and no side effect of Lexapro or Abilify. ASSESSMENT: The patient is still psychotic. TREATMENT PLAN: Continue to monitor behavior and condition closely. Also, continue to work on her irritability and agitation and will continue to follow up. JOB# [id number]
--- NOTE | 2018-04-07 21:21 | Progress Notes ---
DATE: Dr. Alfredo covering for Dr. Laurent. IDENTIFYING DATA: She is an 83-year-old female who was initially brought in here after the patient was observed to be very weak, failure to thrive, depressed, melancholic. Current medications include Abilify 5 mg a day, donepezil 10 mg, Lexapro 10 mg, metoprolol, Plavix, multivitamins, pantoprazole, Ambien. Today on [id number]-[id number] evaluation, the patient is observed to be neurocognitive impaired, mostly reports that everything is fine, poor historian in general. MENTAL STATUS EXAMINATION: Still depressed, aloof, disengaged, need simple redirections to provide simple ADLs. ASSESSMENT AND PLAN: The patient is an 83-year-old female neurocognitive impaired, severe depression and easily agitated. We will continue with the recently started Abilify 5 mg to have continue targeting the patient's irritable and labile behavior. JOB# [id number]
--- NOTE | 2018-04-08 00:26 | Progress Notes ---
DATE: 04/07/2018 SUBJECTIVE: The patient is confused, agitated from time to time. OBJECTIVE: VITAL SIGNS: Temperature is stable. HEENT: Normocephalic, atraumatic. Pupils equal, round, react to light and accommodation. CHEST: Symmetrical. LUNGS: Few wheezing appreciated. CARDIAC: Normal sinus rhythm. S1, S2. ABDOMEN: Benign, soft, nontender. EXTREMITIES: No clubbing, cyanosis, edema bilaterally, 2+. NEUROLOGIC: Unremarkable. LABORATORY DATA: Reviewed. ASSESSMENT AND PLAN: 1. Dysphagia: Aspiration precaution be exercised. 2. Altered level of consciousness on and off. We will observe closely. 3. Agitation, improving. 4. Depression, but no suicidal ideation. We will adjust medication. 5. Alzheimer disease: Continue Aricept due to its effectiveness even in the advanced Alzheimer disease, but the patient have early Alzheimer disease. 6. Psychosis: Adjust medication. 7. DVT prophylaxis. JOB# [id number]
[2018-04-08] MEDS: Pantoprazole 40 mg EC Tab PO SCH (06:48)
[2018-04-08 06:58] LABS: % EOSINOPHILS 4.5 % (0.0-5.0); % MONOCYTES 11.4 % (2.0-10.0); % NEUTROPHILS 68.1 % (40.0-80.0); BASOPHILE ABSOLUTE 0.1 Th/cumm (0-0.2); EOSINOPHILE ABSOLUTE 0.2 Th/cmm (0.1-0.4); HEMATOCRIT 41.7 % (41.0-60); HEMOGLOBIN 13.9 gm/dL (12-16); LYMPHOCYTE ABSOLUTE 0.8 Th/cmm (1.5-3.0); MEAN CORPUSCULAR HEMOGLOBIN 30.6 pg (27.0-31.0); MEAN CORPUSCULAR HGB CONC 33.3 pg (28.0-36.0); MEAN PLATELET VOLUME 7.4 fl; MONOCYTE ABSOLUTE 0.6 Th/cmm (0.3-1.0); NEUTROPHILE ABSOLUTE 3.7 Th/cmm (1.8-8.0); PLATELET COUNT 267 Th/cmm (150-400); RED BLOOD COUNT 4.54 Mil/cmm (3.80-5.20); WHITE BLOOD COUNT 5.4 Th/cmm (4.8-10.8)
[2018-04-08 07:43] LABS: ALB/GLOB RATIO 0.9 (1.0-1.8); ALBUMIN 3.3 gm/dL (3.7-5.3); ALKALINE PHOSPHATASE 64 U/L (34-104); ANION GAP 8.1 (7.0-16.0); BILIRUBIN,TOTAL 0.8 mg/dL (0.3-1.0); BUN - UREA NITROGEN 19 mg/dL (7-25); CALCIUM SERUM 8.8 mg/dL (8.6-10.3); CARBON DIOXIDE 27.2 mEq/L (21.0-31.0); CHLORIDE 100 mEq/L (98-107); CREATININE - SERUM 0.7 mg/dL (0.6-1.2); GLUCOSE 99 mg/dL (70-105); POTASSIUM SERUM 3.3 mEq/L (3.5-5.1); SGOT 14 U/L (13-39); SGPT/ALT 6 U/L (7-52); SODIUM SERUM 132 mEq/L (136-145)
[2018-04-08] MEDS: Docusate Sodium 100 mg/10 mL UD PO SCH ×2 (09:07→17:07)
[2018-04-08] MEDS: Lactobacillus Rhamnosus GG 15 Billion CFU CAP.SPRINK PO SCH (09:07)
[2018-04-08] MEDS: Multivitamin Tab PO SCH (09:08)
--- NOTE | 2018-04-08 18:41 | Progress Notes ---
DATE: 04/08/2018 SUBJECTIVE: The patient was seen and evaluated. The patient's chart reviewed. Today on [id number]-[id number] evaluation, the patient continues to be withdrawn, disengaged, minimally interactive, does not give much information. MENTAL STATUS EXAMINATION: Withdrawn and depressed. ASSESSMENT AND PLAN: The patient is an 83-year-old female neurocognitive impairment, depressed, withdrawn and disengaged. We will continue with primary psychiatrist's treatment plan and goals, which includes Abilify 5 mg a day, Aricept at 10, Lexapro 10 mg, metoprolol to continue to target the patient's severe depression. [facility]# [id number]
[2018-04-08] MEDS ORDERED: KCL 20mEq/100mL Premix 20 MEQ/100 ML PIGGYBACK IV ONE (23:09)
--- NOTE | 2018-04-09 01:31 | Progress Notes ---
DATE: 04/08/2018 SUBJECTIVE: The patient is confused, agitated from time to time. OBJECTIVE: VITAL SIGNS: Basically stable. HEENT: Normocephalic, atraumatic. Pupils equal, round, reactive to light. CHEST: Symmetrical. LUNGS: Few wheezing appreciated. CARDIOVASCULAR: Normal sinus rhythm. S1, S2. ABDOMEN: Benign, soft, nontender. EXTREMITIES: No clubbing, cyanosis, edema, bilaterally . NEUROLOGIC: Unremarkable. LABORATORY DATA: Significant for potassium 3.3, which is low. Sodium 133. ASSESSMENT AND PLAN: 1. Hypokalemia: Supplemented with 20 mEq KCl p.o. x 1. We will repeat BMP to make the patient properly supplemented. 2. Hyponatremia: Repeat BMP in the morning. 3. Altered level of consciousness due to metabolic encephalopathy and dementia. 4. Failure to thrive. 5. Agitation/depression, stable. 6. Alzheimer disease: Continue Aricept. 7. Chronic pain syndrome: Adjust pain medications as needed. 8. Weakness: Fall precaution and physical therapy as needed. 9. DVT prophylaxis. JOB# [id number]
[2018-04-09] MEDS: Pantoprazole 40 mg EC Tab PO SCH (06:40)
[2018-04-09 08:19] LABS: ANION GAP 9.3 (7.0-16.0); BUN - UREA NITROGEN 19 mg/dL (7-25); CALCIUM SERUM 8.9 mg/dL (8.6-10.3); CARBON DIOXIDE 27.1 mEq/L (21.0-31.0); CHLORIDE 102 mEq/L (98-107); CREATININE - SERUM 0.7 mg/dL (0.6-1.2); GLUCOSE 97 mg/dL (70-105); POTASSIUM SERUM 3.4 mEq/L (3.5-5.1); SODIUM SERUM 135 mEq/L (136-145)
[2018-04-09] MEDS: Lactobacillus Rhamnosus GG 15 Billion CFU CAP.SPRINK PO SCH (08:34)
[2018-04-09] MEDS: Docusate Sodium 100 mg/10 mL UD PO SCH ×2 (08:34→17:50)
[2018-04-09] MEDS: Multivitamin Tab PO SCH (08:34)
--- NOTE | 2018-04-09 22:43 | Progress Notes ---
DATE: 04/09/[address] Alfredo covering for Dr. Laurent. I appreciate this medical assessment by Dr. Cadena. He is currently treating the hypokalemia with 20 mEq of potassium chloride and pending BMP. Nursing staff overnight reports the patient continues to be disengaged, minimally interactive. Today on [id number]-tdss evaluation, the patient presents withdrawn, disengaged. MENTAL STATUS EXAMINATION: Withdrawn, disengaged, aloof. ASSESSMENT AND PLAN: This is an 83-year-old female neurocognitively impaired. We will continue with the current medication regimen as medications was recently increased and adjusted to target the patient's severe depression. JOB# [id number]
--- NOTE | 2018-04-09 23:21 | Progress Notes ---
DATE: 04/09/2018 SUBJECTIVE: The patient is confused, agitated, afebrile. OBJECTIVE: VITAL SIGNS: Basically stable. HEENT: Normocephalic, atraumatic. Pupils round, react to light and accommodation. CHEST: Symmetrical. LUNGS: Clear to auscultation bilaterally. CARDIAC: Normal sinus rhythm, S1 and S2. ABDOMEN: Benign, soft, nontender. EXTREMITIES: No clubbing, cyanosis, edema, bilaterally 2+. CRANIOLOGICAL: Unremarkable. LABORATORY DATA: Reviewed. Significant for hypokalemia, potassium 3.4, sodium 135. ASSESSMENT AND PLAN: 1. Altered level of consciousness due to metabolic encephalopathy. We will observe closely. 2. Hypokalemia: Additional 4 mEq KCl p.o. x 1 ordered. We will repeat BMP in the morning to make sure the patient probably supplement. 3. Failure to thrive. 4. Depression, anxiety, and mild psychosis: Medication has been adjusted and closely monitor. 5. Hyponatremia, improving. 6. Alzheimer disease: Continue Aricept. 7. Chronic pain syndrome: Adjust pain medication as needed. 8. DVT prophylaxis. 9. Weakness: Fall precaution. Physical therapy. JOB# [id number]
[2018-04-10] MEDS: Pantoprazole 40 mg EC Tab PO SCH (06:51)
[2018-04-10 08:07] LABS: ANION GAP 8.7 (7.0-16.0); BUN - UREA NITROGEN 19 mg/dL (7-25); CALCIUM SERUM 8.7 mg/dL (8.6-10.3); CARBON DIOXIDE 27.9 mEq/L (21.0-31.0); CHLORIDE 101 mEq/L (98-107); CREATININE - SERUM 0.7 mg/dL (0.6-1.2); GLUCOSE 101 mg/dL (70-105); POTASSIUM SERUM 3.6 mEq/L (3.5-5.1); SODIUM SERUM 134 mEq/L (136-145)
[2018-04-10] MEDS: Lactobacillus Rhamnosus GG 15 Billion CFU CAP.SPRINK PO SCH (09:20)
[2018-04-10] MEDS: Docusate Sodium 100 mg/10 mL UD PO SCH ×2 (09:22→17:36)
[2018-04-10] MEDS: Multivitamin Tab PO SCH (09:22)
--- NOTE | 2018-04-11 00:07 | Progress Notes ---
DATE: 04/10/2018 SUBJECTIVE: The patient is currently in the hospital, history of multiple medical problems, also possibly and likely dementia. The patient is AO to name and where she is. She does not know why she is here. She states the year is 2012. She states the month is December. The patient is seen by Dr. Alfredo over the past couple of days, noted to be quite withdrawn, confused, disengaged, minimally interactive, anhedonic, apathetic. Medications were recently adjusted. ASSESSMENT: The patient with ongoing behavioral disturbances, confusions and noted to be impulsive, unpredictable and withdrawn. PLAN: We will continue to monitor. We will continue to titrate and adjust medications. Medications were reviewed. The patient currently on Aricept, Lexapro, Abilify. JOB# [id number]
[2018-04-11] MEDS: Pantoprazole 40 mg EC Tab PO SCH (06:31)
[2018-04-11] MEDS: Docusate Sodium 100 mg/10 mL UD PO SCH ×3 (08:16→16:19)
[2018-04-11] MEDS: Multivitamin Tab PO SCH (08:16)
[2018-04-11] MEDS: Lactobacillus Rhamnosus GG 15 Billion CFU CAP.SPRINK PO SCH (08:16)
--- NOTE | 2018-04-11 20:06 | Progress Notes ---
DATE: 04/10/2018 SUBJECTIVE: The patient is confused, agitated, afebrile. OBJECTIVE: VITAL SIGNS: Stable. HEENT: Normocephalic, atraumatic. Pupils equal, round, and reactive to light and accommodation. CHEST: Symmetrical. LUNGS: Few wheezes appreciated. HEART: Normal sinus rhythm. S1, S2. ABDOMEN: Benign, soft, nontender. EXTREMITIES: No clubbing, cyanosis, or edema bilaterally, 2+ equally. NEUROLOGIC: Unremarkable. LABORATORY DATA: Reviewed. ASSESSMENT AND PLAN: 1. Altered level of consciousness due to metabolic encephalopathy and dementia and we will observe closely. 2. Hypokalemia, supplemented and corrected. 3. Failure to thrive, improving. 4. Depression, anxiety, and mild psychosis: Follow recommendation by our psychiatrist and appreciate their service. 5. Alzheimer's disease: Continue Aricept. 6. History of chronic pain syndrome, adjusting her medications as needed. 7. DVT prophylaxis. 8. Severe weakness. 9. Discharge planning: Going back to [facility] that is where the patient came from. JOB# [id number]
[2018-04-12] MEDS: Pantoprazole 40 mg EC Tab PO SCH (06:31)
[2018-04-12] MEDS: Multivitamin Tab PO SCH (08:35)
[2018-04-12] MEDS: Docusate Sodium 100 mg/10 mL UD PO SCH ×2 (08:35→17:04)
[2018-04-12] MEDS: Lactobacillus Rhamnosus GG 15 Billion CFU CAP.SPRINK PO SCH (08:36)
--- NOTE | 2018-04-12 16:52 | Progress Notes ---
DATE: 04/11/2018 SUBJECTIVE: The patient is confused, agitated from time to time. OBJECTIVE: VITAL SIGNS: Basically stable. HEENT: Normocephalic, atraumatic. Pupils equal, round, reactive to light and accommodation. CHEST: Symmetrical. LUNGS: Few wheezing appreciated. HEART: Normal sinus rhythm. S1, S2. ABDOMEN: Benign, soft, nontender. EXTREMITIES: No clubbing, cyanosis, or edema bilaterally ____. NEUROLOGIC: Unremarkable. LABORATORY DATA: Reviewed. ASSESSMENT AND PLAN: 1. Failure to thrive: Multifactorial, somewhat improving. 2. Altered level of consciousness due to metabolic encephalopathy and dementia. 3. Hypokalemia, supplemented. 4. Depression/anxiety and mild psychosis: Observe closely and follow up recommendations by Psychiatry. 5. Alzheimer disease: Continue Aricept 10 mg p.o. daily. 6. Chronic pain syndrome: Adjust the medication as needed. 7. Weakness: Fall precaution. 8. DVT prophylaxis. JOB# [id number]
--- NOTE | 2018-04-12 18:39 | Progress Notes ---
DATE: 04/11/2018 PSYCHIATRIC PROGRESS NOTE: Chart reviewed and the patient interviewed. Also discussed the patient's condition with the staff and reviewed records and labs. The patient is still depressed and is still withdrawn. The patient also is still confused and forgetful and she is selectively mute. She also still needs redirections because of her confusion. The patient's affect is flat. On the other hand, the patient continued to comply with taking Abilify at a dose of 5 mg everyday and Aricept and Lexapro with no side effect. ASSESSMENT: The patient is still confused and is still paranoid. TREATMENT PLAN: Continue adjusting psychotropic medications and monitor her behavior and her condition closely. JOB# [id number]
[2018-04-13] MEDS: Pantoprazole 40 mg EC Tab PO SCH (06:31)
[2018-04-13] MEDS: Docusate Sodium 100 mg/10 mL UD PO SCH ×2 (09:33→16:13)
[2018-04-13] MEDS: Multivitamin Tab PO SCH (09:35)
[2018-04-13] MEDS: Lactobacillus Rhamnosus GG 15 Billion CFU CAP.SPRINK PO SCH (09:35)
--- NOTE | 2018-04-13 11:47 | Progress Notes ---
DATE: 04/13/[address] Laurent. Case was discussed with staff of the patient, reviewed records. This is one close to me as I have seen her before covering for Dr. Laurent. The patient does have episodes of yelling and screaming. Continues to be unpredictable, impulsive, needing redirection. Very poor insight. Unable to make safe plan for self-care. She uses sometimes a wheelchair, sometimes she walks. She is intrusive, unpredictable and impulsive. No side effects of the medications, no sedation, no nausea, and no extrapyramidal symptoms. Her Seroquel was increased to 300 mg at bedtime and she is on Depakote 500 mg twice a day and we will continue outpatient group therapy, milieu therapy, and adjust medication as needed. [facility]# [id number]
--- NOTE | 2018-04-13 11:54 | Progress Notes ---
DATE: 04/13/[address] Laurent. Case was discussed with staff of the patient, reviewed the records. This is a well-known case to me as I have seen her before covering for Dr. Laurent. The patient continues to be confused, unpredictable, impulsive, having episodes of being aggressive, forgetful, selectively mute. Continues to need redirection. Continues to have poor insight. No side effects with the medication, no sedation, no nausea, no extrapyramidal symptoms. She is on Abilify 10 mg a day, Aricept 10 mg at bedtime, and Lexapro 10 mg daily with no side effects, no sedation, no nausea, no extrapyramidal symptoms. We will continue the patient in group therapy, milieu therapy, adjust medications as needed. JOB# [id number]
--- NOTE | 2018-04-13 12:35 | Progress Notes ---
DATE: 04/12/2018 SUBJECTIVE: The patient is confused, agitated from time to time. OBJECTIVE: VITAL SIGNS: Basically stable. HEENT: Normocephalic, atraumatic. Pupils equal round, react to light and accommodation. CHEST: Symmetrical. LUNGS: Clear to auscultation bilaterally. CARDIAC: Normal sinus rhythm. S1 and S2. ABDOMEN: Benign, soft, nontender. EXTREMITIES: No clubbing, cyanosis, edema ____. NEUROLOGIC: Unremarkable. LABORATORY DATA: Reviewed. ASSESSMENT AND PLAN: 1. Altered level of consciousness on and off due to metabolic encephalopathy, dementia, and we will observe closely. 2. Failure to thrive. 3. Hypokalemia, supplemented. 4. Depression, anxiety, and mild psychosis: Observe closely and adjust medication as needed. 5. Alzheimer disease: Continue Aricept 10 mg p.o. daily. 6. Chronic pain syndrome, improving. 7. Weakness. 8. Deep venous thrombosis prophylaxis. JOB# [id number]
--- NOTE | 2018-04-13 23:39 | Progress Notes ---
DATE: 04/12/2018 SUBJECTIVE: Chart reviewed and the patient interviewed. Also discussed the patient's condition with the staff and reviewed records and labs. The patient is still withdrawn and is still depressed and confused at the same time. The patient also is interacting minimally with peers and with others and she wants to be left alone. The patient also is forgetful and she is having difficulty following directions. When the staff brought her not to get out of the home, she refused to get out of the room and she gets paranoia. Otherwise, the patient is compliant with taking medications with no side effects of medications. ASSESSMENT: The patient is still depressed and confused and psychotic. TREATMENT PLAN: We will continue Lexapro 10 mg every day. We will increase Abilify to 10 mg every day. We will continue to monitor her behavior and her condition closely. JOB# [id number]
--- NOTE | 2018-04-14 01:52 | Progress Notes ---
DATE: 04/13/2018 SUBJECTIVE: The patient is confused and agitated from time to time. OBJECTIVE: VITAL SIGNS: Basically stable. HEENT: Normocephalic, atraumatic. Pupils equal, round, reactive to light and accommodation. CHEST: Symmetrical. LUNGS: Few wheezing appreciated. CARDIAC: Normal sinus rhythm. S1, S2. ABDOMEN: Benign, soft, nontender. EXTREMITIES: No clubbing, cyanosis, or edema . NEUROLOGICAL: Unremarkable. LABORATORY DATA: Lab ordered. ASSESSMENT AND PLAN: 1. Altered level of consciousness, on and off. We will observe closely. 2. Agitation, improving somewhat. 3. Noncompliance: Education provided. 4. Altered level of consciousness, on and off, but improving.. 5. Failure to thrive, improving. 6. Chronic pain syndrome. Adjust medication as needed. 7. Weakness and difficulty walking: Physical therapy and fall precautions. 8. DVT prophylaxis. JOB# [id number]
[2018-04-14] MEDS: Pantoprazole 40 mg EC Tab PO SCH (06:39)
[2018-04-14 07:45] LABS: ANION GAP 6.5 (7.0-16.0); BUN - UREA NITROGEN 17 mg/dL (7-25); CALCIUM SERUM 8.8 mg/dL (8.6-10.3); CARBON DIOXIDE 28.3 mEq/L (21.0-31.0); CHLORIDE 102 mEq/L (98-107); CREATININE - SERUM 0.7 mg/dL (0.6-1.2); GLUCOSE 96 mg/dL (70-105); POTASSIUM SERUM 3.8 mEq/L (3.5-5.1); SODIUM SERUM 133 mEq/L (136-145)
[2018-04-14] MEDS: Multivitamin Tab PO SCH (08:40)
[2018-04-14] MEDS: Docusate Sodium 100 mg/10 mL UD PO SCH ×2 (08:40→16:28)
[2018-04-14] MEDS: Lactobacillus Rhamnosus GG 15 Billion CFU CAP.SPRINK PO SCH (08:40)
--- NOTE | 2018-04-14 19:07 | Progress Notes ---
DATE: 04/14/2018 SUBJECTIVE: The patient in the hospital, he has been here for quite some weeks. The patient with history of dementia, apparently with psychotic features. Dr. Fish is seeing the patient over the past few days. The patient is very confused, unpredictable, impulsive, disoriented and selectively mute, still aggressive, ongoing mood symptoms. The patient slept for about 8 hours last night, calm during the nighttime. Periods of disorientation, confusion, noted to be withdrawn, at times disrobing herself, mumbling at times, stating she is in the hospital to "take care of things" and then saying "thank you" and not answering any further questions. ASSESSMENT AND PLAN: The patient remains symptomatic, not safe for a lower level of care. We will continue to monitor and follow up. JOB# [id number]
[2018-04-15] MEDS: Pantoprazole 40 mg EC Tab PO SCH (06:36)
[2018-04-15] MEDS: Docusate Sodium 100 mg/10 mL UD PO SCH ×2 (09:07→16:12)
[2018-04-15] MEDS: Lactobacillus Rhamnosus GG 15 Billion CFU CAP.SPRINK PO SCH (09:07)
[2018-04-15] MEDS: Multivitamin Tab PO SCH (09:07)
--- NOTE | 2018-04-15 09:15 | Progress Notes ---
DATE: 04/15/2018 SUBJECTIVE: The patient with history of dementia. Still noted to be confused, disoriented, nonsensical on exam. The patient remains quiet, depressed. She slept for about 6-7 hours last night. Staff noting she remains withdrawn, mostly in her room. At times, will attempt to disrobe herself, poor orientation, needing constant redirection. Concerns for ability to care for herself at a lower level of care given her ongoing symptoms. Medications were noted including doses and frequencies. ASSESSMENT: The patient remains symptomatic, still confused, still with ongoing behavioral disturbances, confusion, attempting to disrobe. PLAN: We will continue to monitor. We will continue to adjust and titrate medications as tolerated. We will monitor for any overt side effects. JOB# [id number]
--- NOTE | 2018-04-15 23:05 | Progress Notes ---
DATE: 04/15/2018 SUBJECTIVE: The patient is confused, agitated sometimes . PHYSICAL EXAMINATION: VITAL SIGNS: Basically stable. HEENT: Normocephalic, atraumatic. Pupils equal, round, react to light and accommodation. CHEST: Symmetrical. LUNGS: Few wheezing appreciated. CARDIAC: Normal sinus rhythm. S1, S2. ABDOMEN: Benign, soft, nontender. EXTREMITIES: No clubbing, cyanosis, edema bilaterally, 2+. NEUROLOGIC: Unremarkable. LABORATORY DATA: Reviewed. ASSESSMENT AND PLAN: 1. Chronic pain syndrome: Adjust pain medication as needed. 2. Altered level of consciousness due to metabolic encephalopathy and dementia. 3. Alzheimer disease: Continue Aricept. 4. Weakness: Fall precaution and physical therapy. 5. Hypokalemia, supplemented. 6. Urinary tract infection, treated. 7. History of hypertension. 8. DVT prophylaxis. 9. Failure to thrive, improving somewhat. 10. Agitation on and off. We will observe closely. JOB# [id number]
[2018-04-16] MEDS: Pantoprazole 40 mg EC Tab PO SCH (06:34)
[2018-04-16] MEDS: Lactobacillus Rhamnosus GG 15 Billion CFU CAP.SPRINK PO SCH (14:53)
[2018-04-16] MEDS: Docusate Sodium 100 mg/10 mL UD PO SCH ×2 (14:53→17:14)
[2018-04-16] MEDS: Multivitamin Tab PO SCH (14:53)
[2018-04-17] MEDS: Pantoprazole 40 mg EC Tab PO SCH (06:38)
[2018-04-17] MEDS: Lactobacillus Rhamnosus GG 15 Billion CFU CAP.SPRINK PO SCH (08:56)
[2018-04-17] MEDS: Docusate Sodium 100 mg/10 mL UD PO SCH (08:56)
[2018-04-17] MEDS: Multivitamin Tab PO SCH (08:56)
--- NOTE | 2018-04-17 20:43 | Progress Notes ---
DATE: 04/16/2018 SUBJECTIVE: Chart reviewed and the patient interviewed. Also, discussed the patient's condition with the staff and reviewed records and labs. The patient is still in a depressed mood. The patient also is still suspicious and paranoid and seems to be preoccupied, but less than before and she seems to be much better and easier to redirect her. The patient also is compliant with taking her medications with no side effects of medications. ASSESSMENT: The patient is still depressed, but seems to be less paranoid. TREATMENT PLAN: We will continue monitoring her behavior and her condition closely. Also, continue to work with caser up in regard to discharge plans and planning to discharge the patient today if [facility] will accept her. Otherwise, we will continue to work on discharge plans and placement issue. JOB# [id number]
--- NOTE | 2018-04-18 02:53 | Progress Notes ---
DATE: 04/17/2018 SUBJECTIVE: Chart reviewed and the patient interviewed. Also discussed the patient's condition with the staff and reviewed records and labs. The patient was supposed to be discharged from the hospital, but for some reason onsite case manager did not discharge the patient yet and the patient is still in the hospital and he did not discharge yesterday. The patient is supposed to be discharged to [facility]. The patient is calm and cooperative with her treatment with no side effects of medications. TREATMENT PLAN: Planning to discharge the patient today if the onsite case manager arranges for her discharge. Also, outpatient treatment and followup will continue as an outpatient in the [facility]. JOB# [id number]
--- NOTE | 2018-04-18 03:17 | Discharge Summary ---
DATE OF DISCHARGE: 04/17/2018 FINAL DIAGNOSES: 1. Altered level of consciousness, improved. 2. Agitation, improved. 3. Psychosis, stabilized. 4. Depression, improved. 5. Chronic pain syndrome, improved. 6. Failure to thrive, improved. 7. Hypertension, stable. 8. Hypokalemia, corrected. 9. Hyponatremia, stabilized. HOSPITAL COURSE: The patient is an 83-year-old female admitted due to altered level of consciousness, failure to thrive, urinary tract infection, chronic pain syndrome, Alzheimer disease, severe weakness, anxiety, depression. The patient is an 83-year-old female admitted with above-mentioned medical conditions. The patient was treated accordingly. A psychiatrist consultation requested and appreciated. The patient's medication was adjusted. Anxiety, depression, psychosis improved. The patient's hypokalemia was supplemented properly and on time and was corrected. The patient finally accepted back to [facility]. DISCHARGE CONDITION: Stable. DISPOSITION: Regular care. DISCHARGE MEDICATIONS: Continue medications from here. DIET: Cardiac, soft diet. ACTIVITY: Bed rest with physical therapy. FOLLOWUP: One week. JOB# [id number]
== END 2018-04-17 14:10 | DRG 885 ==
LOC: GERO 21:05
PROVIDERS: ADMIT Psychiatry & Neurology Psychiatry; ATTEND Psychiatry & Neurology Psychiatry
DX: F33.3 Major depressive disorder, recurrent, severe with psychotic symptoms (principal); F02.81 Dementia in other diseases classified elsewhere, unspecified severity, with behavioral disturbance; G93.41 Metabolic encephalopathy; N39.0 Urinary tract infection, site not specified; E87.1 Hypo-osmolality and hyponatremia; G30.9 Alzheimer's disease, unspecified; I10 Essential (primary) hypertension; K21.9 Gastro-esophageal reflux disease without esophagitis; M19.90 Unspecified osteoarthritis, unspecified site; F41.9 Anxiety disorder, unspecified; R62.7 Adult failure to thrive; G89.4 Chronic pain syndrome; G47.00 Insomnia, unspecified; E87.6 Hypokalemia
CPT/HCPCS: 36415-UA; 80048-TC; 80053-TC; 83735-TC; 84443-TC; 85025-TC; 87086-90; G0410; J3480; Z7610

== ENCOUNTER 2018-07-10 13:28 | Inpatient (IN) | payer MEDICARE, MEDICAID ==
--- NOTE | 2018-07-10 13:42 | ED Physician Chart ---
ED Chief Complaint/HPI - Patient Information Date Seen:: 07/10/18 Time Seen:: 13:25 Chief Complaint:: Itching History of Present Illness:: onset x 3 days of itching rash, weakness, and confusion; no report of trauma, H/ As, S/T, neck pain, C/P, SOB, Abd. Pain, A/N/V/D/C, fever, chills, or urinary s/ s Allergies:: Allergies Allergy/AdvReac Type Severity Reaction Status Date / Time Penicillins [PCN] Allergy Verified 03/21/18 18:40 Historian:: Patient, EMS Review:: Nurse's Note Reviewed, Old Chart Reviewed, EMS run form Reviewed ED Review of Systems - Review of Systems General/Constitutional: Fever, No chills, No weight loss, Weakness, No diaphoresis, No edema, No loss of appetite Skin: Skin lesions, Rash, No bruising Head: No headache, No light-headedness Eyes: No loss of vision, No pain, No diplopia ENT: No earache, No nasal drainage, No sore throat, No tinnitus Neck: No neck pain, No swelling, No thyromegaly, No stiffness, No mass noted Cardio Vascular: No chest pain, No palpitations, No PND, No orthopnea, No edema Pulmonary: No SOB, No cough, No sputum, No wheezing GI: No nausea, No vomiting, No diarrhea, No pain, No melena, No hematochezia, No constipation, No hematemesis G/U: No dysuria, No frequency, No hematuria, No nacturia Secretarial Teacher: No vaginal discharge, No abnormal vaginal bleed, No contraction Musculoskeletal: No bone or joint pain, No back pain, No muscle pain Endocrine: No polyuria, No polydipsia Psychiatric: No prior psych history, No depression, No anxiety, No suicidal ideation, No homicidal ideation, No auditory hallucination, No visual hallucination Hematopoietic: No bruising, No lymphadenopathy Allergic/Immuno: No urticaria, No angioedema Neurological: No syncope, No focal symptoms, Weakness, No paresthesia, No headache, No seizure, No dizziness, Confusion, No vertigo ED Past Medical History - Past Medical History Obtainable: Yes Past Medical History: HTN, Dyslipidemia, PUD/GERD, Arthritis, Dementia Family History: HTN Social History: Non Smoker, No Alcohol, No Drug Use, , Care Facility Surgical History: Pacemaker Psychiatricy History: Dementia Medication: Reviewed Family Medical History - Family Member Mother History Unknown: Yes Ethnicity: Unknown Living Status: Unknown ED Physical Exam - Physical Examination General/Constitutional: Awake, Well-developed, well-nourished, Alert, No distress, GCS 15, Non-toxic appearing, Ambulatory Head: Atraumatic Eyes: Lids, conjuctiva normal, PERRL, EOMI Skin: Nl inspection, No skin lesions, No ecchymosis, Well hydrated, No lymphadenopathy Other Skin comments:: scattered maculo-papular lesions ENMT: External ears, nose nl, TM canals nl, Nasal exam nl, Lips, teeth, gums nl , Oropharynx nl, Tonsils nl Neck: Nontender, Full ROM w/o pain, No JVD, No nuchal rigidity, No bruit, No mass, No stridor Respiratory: Nl effort/Exclusion, Clear to Auscultation, No Wheeze/Rhonchi/Rales Cardio Vascular: RRR, No murmur, gallop, rubs, NL S1 S2, Carotid/Femoral/Distal pulses equal bilaterally GI: No tenderness/rebounding/guarding, No organomegaly, No hernia, Normal BS's, Nondistended, No mass/bruits, No McBurney tenderness : No CVA tenderness Extremities: No tenderness or effusion, Full ROM, normal strength in all extremities, No edema, Normal digits & nails Neuro/Psych: Alert/oriented, DTR's symmetric, Normal sensory exam, Normal motor strength, Judgement/insight normal, Mood normal, Normal gait, No focal deficits Misc: Normal back, No paraspinal tenderness ED Labs/Radiology/EKG Results - Lab Results Comments:: Reviewed - Radiology Results Comments:: CXR: + Infiltrate - EKG Interpretations EKG Time:: 13:55 Rate & Rhythm: 69; NSR Comments:: non-specific st-t changes ED Septic Shock - . Is Septic Shock (SBP<90, OR Lactate>4 mmol\L) present?: No ED Reassessment (Disposition) - Reassessment Reassessment Condition:: Improved - Diagnosis Diagnosis:: Itching Rash; Weakness; PNA; Sepsis; Hyponatremia; Fever - Aftercare/Follow up Instructions Aftercare/Follow-Up Instructions:: Counseled pt regarding lab results/diagnosis & need follow up, Counseled pt & family regarding lab results/diagnosis & need follow up - Patient Disposition Discharge/Transfer:: Acute Care w/in this hosp Accepting Physician:: Dr. Cadena Time Called:: 1529 Time Responded:: 15:30 Admitted to:: Telemetry Spoke to:: Dr. Cadena Admitting Medical Physician:: Dr. Cadena Condition at Disposition:: Stable, Improved
[2018-07-10 14:01] LABS: % BASOPHILS 0.8 % (0.0-2.0); % EOSINOPHILS 2.1 % (0.0-5.0); % MONOCYTES 6.3 % (2.0-10.0); % NEUTROPHILS 83.8 % (40.0-80.0); BASOPHILE ABSOLUTE 0.1 Th/cumm (0-0.2); EOSINOPHILE ABSOLUTE 0.2 Th/cmm (0.1-0.4); HEMATOCRIT 42.7 % (41.0-60); HEMOGLOBIN 14.4 gm/dL (12-16); LYMPHOCYTE ABSOLUTE 0.7 Th/cmm (1.5-3.0); MEAN CORPUSCULAR HEMOGLOBIN 31.8 pg (27.0-31.0); MEAN CORPUSCULAR HGB CONC 33.8 pg (28.0-36.0); MEAN PLATELET VOLUME 7.1 fl; MONOCYTE ABSOLUTE 0.7 Th/cmm (0.3-1.0); NEUTROPHILE ABSOLUTE 8.7 Th/cmm (1.8-8.0); PLATELET COUNT 334 Th/cmm (150-400); RED BLOOD COUNT 4.54 Mil/cmm (3.80-5.20); RED CELL DISTRIBUTION WIDTH 12.5 % (11.5-20.0); WHITE BLOOD COUNT 10.4 Th/cmm (4.8-10.8)
[2018-07-10 14:12] LABS: INR 0.94 (0.5-1.4); PROTHROMBIN TIME (TEST) 9.8 SECONDS (9.5-11.5)
[2018-07-10 14:15] LABS: ALBUMIN 3.4 gm/dL (3.7-5.3); ALKALINE PHOSPHATASE 68 U/L (34-104); ANION GAP 7.5 (7.0-16.0); BILIRUBIN,TOTAL 0.6 mg/dL (0.3-1.0); BUN - UREA NITROGEN 16 mg/dL (7-25); CALCIUM SERUM 9.1 mg/dL (8.6-10.3); CARBON DIOXIDE 29.1 mEq/L (21.0-31.0); CHLORIDE 101 mEq/L (98-107); CREATININE - SERUM 0.8 mg/dL (0.6-1.2); CREATININE KINASE 22 U/L (30-223); GLUCOSE 88 mg/dL (70-105); POTASSIUM SERUM 3.6 mEq/L (3.5-5.1); SGOT 13 U/L (13-39); SGPT/ALT 3 U/L (7-52); SODIUM SERUM 134 mEq/L (136-145); TOTAL PROTEIN,SERUM 6.9 gm/dL (6.0-8.3)
--- NOTE | 2018-07-10 14:18 | Diagnostic Imaging Report ---
CHEST X-RAY: AP view INDICATION: pain COMPARISON: Chest x-ray 03/22/2018 FINDINGS: Left basal opacity is noted. Chronic lung changes are noted with low lung volumes. Heart size is normal. Atherosclerosis is noted. Degenerative changes of the spine are noted IMPRESSION: Left basal opacity. Pulmonary nodule or infiltrate cannot be excluded. Recommend short-term follow-up with CT of the chest. Results relayed to the referring team following the exam on 07/10/2018.
[2018-07-10] MEDS ORDERED: Levofloxacin 500mg/100mL 500 MG/100 ML BAG IV ONE ×2 (14:40→15:35)
[2018-07-11] MEDS ORDERED: Magnesium Hydroxide (MOM) 30 mL UDC PO PRN (11:34)
[2018-07-11] MEDS ORDERED: Maalox 30 mL Cup PO PRN (11:34)
[2018-07-11] MEDS ORDERED: Hydrocodone/APAP 5mg/325mg Tab PO PRN (11:34)
--- NOTE | 2018-07-11 11:41 | Internal Medicine Prog Note ---
Internal Medicine Subjective - Subjective Service Date: 07/11/18 Patient seen and examined:: without staff Patient is:: awake, verbal, in bed, confused Patient Complaints of:: congestion Per staff patient has:: no adverse event Internal Medicine Objective - Results Result Diagrams: 07/10/18 13:53 07/10/18 13:53 Recent Labs: Laboratory Last Values WBC 10.4 Th/cmm (4.8-10.8) 07/10/18 13:53 RBC 4.54 Mil/cmm (3.80-5.20) 07/10/18 13:53 Hgb 14.4 gm/dL (12-16) 07/10/18 13:53 Hct 42.7 % (41.0-60) 07/10/18 13:53 MCV 94.0 fl (81-100) 07/10/18 13:53 MCH 31.8 pg (27.0-31.0) H 07/10/18 13:53 MCHC Differential 33.8 pg (28.0-36.0) 07/10/18 13:53 RDW 12.5 % (11.5-20.0) 07/10/18 13:53 Plt Count 334 Th/cmm (150-400) 07/10/18 13:53 MPV 7.1 fl 07/10/18 13:53 Neutrophils % 83.8 % (40.0-80.0) H 07/10/18 13:53 Lymphocytes % 7.0 % (20.0-50.0) L 07/10/18 13:53 Monocytes % 6.3 % (2.0-10.0) 07/10/18 13:53 Eosinophils % 2.1 % (0.0-5.0) 07/10/18 13:53 Basophils % 0.8 % (0.0-2.0) 07/10/18 13:53 Neutrophils (Manual) Not Reportable 07/10/18 13:53 PT 9.8 SECONDS (9.5-11.5) 07/10/18 13:53 INR 0.94 (0.5-1.4) 07/10/18 13:53 PTT (Actin FS) 23.3 SECONDS (26.0-38.0) L 07/10/18 13:53 Sodium 134 mEq/L (136-145) L 07/10/18 13:53 Potassium 3.6 mEq/L (3.5-5.1) 07/10/18 13:53 Chloride 101 mEq/L (98-107) 07/10/18 13:53 Carbon Dioxide 29.1 mEq/L (21.0-31.0) 07/10/18 13:53 Anion Gap 7.5 (7.0-16.0) 07/10/18 13:53 BUN 16 mg/dL (7-25) 07/10/18 13:53 Creatinine 0.8 mg/dL (0.6-1.2) 07/10/18 13:53 Est GFR ( Amer) TNP 07/10/18 13:53 Est GFR (Non-Af Amer) TNP 07/10/18 13:53 BUN/Creatinine Ratio 20.0 07/10/18 13:53 Glucose 88 mg/dL (70-105) 07/10/18 13:53 Whole Bld Lactic Acid 1.05 mmol/L (0.60-1.99) 07/10/18 13:53 Calcium 9.1 mg/dL (8.6-10.3) 07/10/18 13:53 Total Bilirubin 0.6 mg/dL (0.3-1.0) 07/10/18 13:53 AST 13 U/L (13-39) 07/10/18 13:53 ALT 3 U/L (7-52) L 07/10/18 13:53 Alkaline Phosphatase 68 U/L (34-104) 07/10/18 13:53 Creatine Kinase 22 U/L (30-223) L 07/10/18 13:53 Troponin I 0.01 ng/mL (0.01-0.05) 07/10/18 13:53 Total Protein 6.9 gm/dL (6.0-8.3) 07/10/18 13:53 Albumin 3.4 gm/dL (3.7-5.3) L 07/10/18 13:53 Globulin 3.5 gm/dL 07/10/18 13:53 Albumin/Globulin Ratio 1.0 (1.0-1.8) 07/10/18 13:53 - Physical Exam Vitals and I&O: Vital Signs Temp 97.9 F 07/11/18 08:00 Pulse 75 07/11/18 08:00 Resp 18 07/11/18 08:00 BP 125/58 07/11/18 08:00 Pulse Ox 97 07/11/18 08:00 Intake & Output 07/10/18 07/11/18 07/11/18 18:59 06:59 18:59 Weight (lbs) 54.431 kg 46.13 kg Other: # Voids 2 # Bowel Movements 0 Weight Source Estimated Bedscale Active Medications: Current Medications Acetaminophen (Tylenol) 650 mg PO Q6H PRN PRN Reason: pain or fever>101 Stop: 09/09/18 11:33 Acetaminophen/Hydrocodone Bitart ([place] 5mg/325mg) 1 tab PO Q4H PRN PRN Reason: Pain (Severe) Stop: 09/09/18 11:33 Al Hydrox/Mg Hydrox/Simethicone (Maalox) 30 ml PO Q6H PRN PRN Reason: GI DISTRESS Stop: 09/09/18 11:33 Aripiprazole (Abilify) 5 mg PO DAILY [facility]; Protocol Stop: 09/10/18 08:59 Bisacodyl (Dulcolax 10 Mg Supp) 10 mg RC DAILY [facility] Stop: 09/10/18 08:59 Donepezil HCl (Aricept) 10 mg PO DAILY [facility] Stop: 09/10/18 08:59 Escitalopram Oxalate (Lexapro) 10 mg PO DAILY [facility]; Protocol Stop: 09/10/18 08:59 Levofloxacin (Levaquin Pb) 750 mg in 150 mls @ 100 mls/hr IV Q48HR@1700 [facility]; Protocol Stop: 09/09/18 16:59 Potassium Chloride 10 meq/ (Dextrose/Sodium Chloride) 1,005 mls @ 75 mls/hr IV .[id number] [facility] Stop: 09/09/18 11:44 Lactobacillus Rhamnosus (Culturelle 15b) 1 each PO DAILY [facility] Stop: 09/10/18 08:59 Magnesium Hydroxide (Milk Of Magnesia) 30 ml PO DAILY PRN PRN Reason: Constipation Stop: 09/09/18 11:33 Metoprolol Tartrate (Lopressor) 25 mg PO BID [facility] Stop: 09/09/18 16:59 Miscellaneous (Docusate Sodium) 100 mg PO BID [facility] Stop: 09/09/18 16:59 Multivitamins/Vitamin C (Theragran) 1 tab PO DAILY [facility] Stop: 09/10/18 08:59 Pantoprazole Sodium (Protonix) 40 mg PO QDAC [facility] Stop: 09/10/18 07:29 Ropinirole HCl (Requip) 0.25 mg PO TID [facility] Stop: 09/09/18 13:59 General: weak, lethargic, congested HEENT: NC/AT, EOMI, anicteric sclerae, throat clear, thyromegaly Neck: Supple, No JVD, No LAD Lungs: congested, ronchi Cardiovascular: Normal S1 Abdomen: soft, non-tender, non-distended Extremities: clear, other (rash) Neurological: no change, lethargic Internal Medicine Assmt/Plan - Assessment Assessment: ALOC: multifactorial, observe closely. Extensive skin lesions: unclear etiology, work up in progress; ID consultation appreciated. Early Sepsis? IVPb ABX; panculture. PNA of LLL? CT scan ordered; RT protocol; IVPB ABX. Fever: better. Noncompliance: education provided. DVT prophylaxis. UTI? urine C&S ordered.
[2018-07-11] MEDS: Albuterol/Ipratropium Neb 3 ML AERS HHN SCH ×2 (13:25→19:31)
[2018-07-11] MEDS: Potassium Chloride 10 MEQ in D5-0.9%NS 1,000 ML IV SCH (13:28)
--- NOTE | 2018-07-11 14:13 | Diagnostic Imaging Report ---
CT Chest without IV contrast HISTORY: Mass COMPARISON: Chest x-ray on 07/10/2018. Technique: Axial images were obtained from the base of the neck to the upper abdomen without IV contrast. Reconstructions were made. Total DLP to 13, CTD identified 0.3 Findings: Evaluation of the mediastinum is limited due to lack of IV contrast. Heart size is normal. Moderate atherosclerosis is noted. 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 Biapical pleural thickening and pleural calcifications are noted. Linear densities the lungs are seen demonstrating atelectatic hypoventilatory changes. Minimal bilateral airspace disease is noted. Passive atelectatic and mild consult changes of the left lung base is noted. No pleural effusions. The upper abdomen demonstrates atherosclerosis. There is severe spinal scoliosis with what is effusion of the L1 and L2 vertebral bodies with severe loss of height of L2 asymmetric to the right side also contributing to patient's spinal scoliosis. 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 This may account for abnormal density within the left lower hemithorax seen on recent chest x-ray. There is also consolidative changes of the left lung base concerning for pneumonia. Follow-up is needed to ensure resolution of this finding. Minimal right basal passive atelectatic and consolidative changes also noted. Additional hypoventilatory atelectatic changes of the lungs of mild groundglass opacities. Moderate atherosclerosis Severe spinal scoliosis with fusion of the L1-L2 vertebral bodies with advanced chronic loss of height of L2 asymmetric to the right side probably causing patient's scoliosis. Please correlate clinical history and older exams.
--- NOTE | 2018-07-11 15:10 | History & Physical ---
ADMIT DATE: 07/10/2018 CHIEF COMPLAINT: Severe skin itch rash and confusion. HISTORY OF PRESENT ILLNESS: The patient is an 83-year-old female admitted to telemetry floor of [facility] from the Emergency Room due to multiple complicated medical conditions. Apparently, the patient became more confused in the past few days with progressive worsening compared to her baseline status. In the Emergency Room, she also has mild fever. A chest x-ray revealed probable left lower lobe pneumonia according to the ER physician. On physical examination, there are extensive skin lesions in her body throughout. These lesions have not responded to Dermatology consultation multiple times in the assisted despite topical steroids, even p.o. steroid treatment, and different treatment regimens by the electric installer. PAST MEDICAL HISTORY: Including COPD, pneumonia, urinary tract infection, psychosis, anxiety, depression, degenerative joint disease, and hypertension. PAST SURGICAL HISTORY: Denies significant past surgical history. MEDICATIONS: See medication reconciliation list. ALLERGIES: PENICILLIN. FAMILY HISTORY: Noncontributory. REVIEW OF SYSTEMS: Cannot be reliably obtained as the patient is confused, does not answer questions appropriately. PHYSICAL EXAMINATION: GENERAL: Well-developed, thin female, in no acute distress. SKIN: There are extensive skin lesions as mentioned above. VITAL SIGNS: Basically stable except mild fever. HEENT: Normocephalic, atraumatic. Pupils equal, round, react to light and accommodation. CHEST: Symmetrical. LUNGS: Few rhonchi appreciated in the left lower lobe. CARDIAC: Normal sinus rhythm, S1 and S2. ABDOMEN: Benign, soft, nontender. EXTREMITIES: No clubbing, cyanosis, edema bilaterally 2+. NEUROLOGICAL: Unremarkable. LABORATORY DATA: Reviewed. ASSESSMENT AND PLAN: 1. Severe skin rash/cellulitis: The patient was seen by Dermatology multiple times in the assisted with different treatment regimen without apparent relief. The patient has taken steroids and antibiotics multiple times. An ID consultation with Dr. Marshall requested and greatly appreciated. 2. Probable early lower lobe aspiration pneumonia: We will do a CT scan of the chest to clear this and sputum and blood culture ordered. RT protocol ordered, empiric antibiotic started which will be adjusted accordingly. 3. Early sepsis: Blood culture ordered. We will order IVPB antibiotics and adjust accordingly. 4. Hyponatremia, rule out syndrome of inappropriate antidiuretic hormone. 5. Mild fever: Blood culture ordered. 6. Possible urinary tract infection: I have ordered urine culture and blood culture. 7. Altered level of consciousness, could be due to metabolic encephalopathy and dementia. 8. Difficulty walking: Physical therapy. 9. DVT prophylaxis. JOB# [id number]
[2018-07-11] MEDS: Levofloxacin 750mg/150mL 750 MG/150 ML BAG IV SCH (16:42)
[2018-07-11 17:29] LABS: URINE SOURCE MIDSTREAM
[2018-07-11 17:31] LABS: URINE BILIRUBIN NEGATIVE (NEGATIVE); URINE BLOOD NEGATIVE (NEGATIVE); URINE GLUCOSE (UA) NEGATIVE (NEGATIVE); URINE KETONE NEGATIVE (NEGATIVE); URINE LEUKOCYTE ESTERASE TRACE (NEGATIVE); URINE MICROSCOPIC INDICATED? YES; URINE NITRATE NEGATIVE (NEGATIVE); URINE PROTEIN NEGATIVE (NEGATIVE); URINE UROBILINOGEN 0.2 E.U./dL (0.2 - 1.0)
[2018-07-11 17:36] LABS: URINE CLARITY CLEAR (CLEAR); URINE COLOR YELLOW
[2018-07-11 17:40] LABS: URINE BACTERIA OCCASIONAL /hpf (NONE SEEN); URINE EPITHELIAL CELLS FEW /lpf (FEW); URINE RBC 0-2 /hpf (0-5)
--- NOTE | 2018-07-11 23:29 | Consultation ---
DATE OF CONSULTATION: 07/11/2018 INFECTIOUS DISEASE CONSULTATION PRIMARY PHYSICIAN: Dr. Cadena. This is an 83-year-old female who was brought to the hospital because of multiple skin lesions. HISTORY OF PRESENT ILLNESS: The patient has a history of scratching and has developed multiple areas of cellulitis with infected wounds. Infectious consultation was called. The patient was started on vancomycin and wound culture ordered. PAST MEDICAL HISTORY: Gallbladder calculus, dementia, diaphragmatic hernia, duodenal ulcer, hypertension, low back pain, Alzheimer's. SOCIAL HISTORY: Nonsmoker. FAMILY HISTORY: History of hypertension present. PAST SURGICAL HISTORY: Cardiac pacemaker. ALLERGIES: PENICILLIN. REVIEW OF SYSTEMS: A 14-point review of system negative except above. PHYSICAL EXAMINATION: GENERAL: Elderly female following simple commands. VITAL SIGNS: As follows: Temperature 98, pulse 80, respirations 18, blood pressure 100/60. HEENT: Mild pallor, no icterus or plaque. NECK: Supple. LUNGS: Breath sounds bilateral vesicular. ABDOMEN: Soft. SKIN: The patient has multiple folliculitis with infected open wounds from neck down. Does not appear to be scabies. DIAGNOSES: Multiple flat folliculitis with infected wounds. PLAN: The patient is started on vancomycin, wound culture, supportive care and local care. OTHER DIAGNOSES: Pneumonia, the patient already on Levaquin; hypertension, Lopressor; depression, Lexapro; dementia, Aricept. Rest of the care as ordered in [facility]. Thank you, Dr. Cadena for this consultation. JOB# [id number]
[2018-07-12] MEDS: Albuterol/Ipratropium Neb 3 ML AERS HHN SCH ×4 (01:19→19:14)
[2018-07-12] MEDS: Potassium Chloride 10 MEQ in D5-0.9%NS 1,000 ML IV SCH ×2 (06:36→21:11)
[2018-07-12] MEDS: Lactobacillus Rhamnosus GG 15 Billion CFU CAP.SPRINK PO SCH (08:26)
[2018-07-12] MEDS: Pantoprazole 40 mg EC Tab PO SCH (08:26)
[2018-07-12] MEDS: Multivitamin Tab PO SCH (08:27)
--- NOTE | 2018-07-12 22:49 | Internal Medicine Prog Note ---
Internal Medicine Subjective - Subjective Service Date: 07/12/18 Patient seen and examined:: without staff Patient is:: awake, verbal, in bed, confused Patient Complaints of:: congestion Per staff patient has:: no adverse event Internal Medicine Objective - Results Result Diagrams: 07/10/18 13:53 07/10/18 13:53 Recent Labs: Laboratory Last Values WBC 10.4 Th/cmm (4.8-10.8) 07/10/18 13:53 RBC 4.54 Mil/cmm (3.80-5.20) 07/10/18 13:53 Hgb 14.4 gm/dL (12-16) 07/10/18 13:53 Hct 42.7 % (41.0-60) 07/10/18 13:53 MCV 94.0 fl (81-100) 07/10/18 13:53 MCH 31.8 pg (27.0-31.0) H 07/10/18 13:53 MCHC Differential 33.8 pg (28.0-36.0) 07/10/18 13:53 RDW 12.5 % (11.5-20.0) 07/10/18 13:53 Plt Count 334 Th/cmm (150-400) 07/10/18 13:53 MPV 7.1 fl 07/10/18 13:53 Neutrophils % 83.8 % (40.0-80.0) H 07/10/18 13:53 Lymphocytes % 7.0 % (20.0-50.0) L 07/10/18 13:53 Monocytes % 6.3 % (2.0-10.0) 07/10/18 13:53 Eosinophils % 2.1 % (0.0-5.0) 07/10/18 13:53 Basophils % 0.8 % (0.0-2.0) 07/10/18 13:53 Neutrophils (Manual) Not Reportable 07/10/18 13:53 PT 9.8 SECONDS (9.5-11.5) 07/10/18 13:53 INR 0.94 (0.5-1.4) 07/10/18 13:53 PTT (Actin FS) 23.3 SECONDS (26.0-38.0) L 07/10/18 13:53 Sodium 134 mEq/L (136-145) L 07/10/18 13:53 Potassium 3.6 mEq/L (3.5-5.1) 07/10/18 13:53 Chloride 101 mEq/L (98-107) 07/10/18 13:53 Carbon Dioxide 29.1 mEq/L (21.0-31.0) 07/10/18 13:53 Anion Gap 7.5 (7.0-16.0) 07/10/18 13:53 BUN 16 mg/dL (7-25) 07/10/18 13:53 Creatinine 0.8 mg/dL (0.6-1.2) 07/10/18 13:53 Est GFR ( Amer) TNP 07/10/18 13:53 Est GFR (Non-Af Amer) TNP 07/10/18 13:53 BUN/Creatinine Ratio 20.0 07/10/18 13:53 Glucose 88 mg/dL (70-105) 07/10/18 13:53 Whole Bld Lactic Acid 1.05 mmol/L (0.60-1.99) 07/10/18 13:53 Calcium 9.1 mg/dL (8.6-10.3) 07/10/18 13:53 Total Bilirubin 0.6 mg/dL (0.3-1.0) 07/10/18 13:53 AST 13 U/L (13-39) 07/10/18 13:53 ALT 3 U/L (7-52) L 07/10/18 13:53 Alkaline Phosphatase 68 U/L (34-104) 07/10/18 13:53 Creatine Kinase 22 U/L (30-223) L 07/10/18 13:53 Troponin I 0.01 ng/mL (0.01-0.05) 07/10/18 13:53 Total Protein 6.9 gm/dL (6.0-8.3) 07/10/18 13:53 Albumin 3.4 gm/dL (3.7-5.3) L 07/10/18 13:53 Globulin 3.5 gm/dL 07/10/18 13:53 Albumin/Globulin Ratio 1.0 (1.0-1.8) 07/10/18 13:53 Urine Source MIDSTREAM 07/11/18 17:25 Urine Color YELLOW 07/11/18 17:25 Urine Clarity CLEAR (CLEAR) 07/11/18 17:25 Urine pH 6.0 (4.6 - 8.0) 07/11/18 17:25 Ur Specific [place] <= 1.005 (1.005-1.030) 07/11/18 17:25 Urine Protein NEGATIVE mg/dL (NEGATIVE) 07/11/18 17:25 Urine Glucose (UA) NEGATIVE mg/dL (NEGATIVE) 07/11/18 17:25 Urine Ketones NEGATIVE mg/dL (NEGATIVE) 07/11/18 17:25 Urine Blood NEGATIVE (NEGATIVE) 07/11/18 17:25 Urine Nitrate NEGATIVE (NEGATIVE) 07/11/18 17:25 Urine Bilirubin NEGATIVE (NEGATIVE) 07/11/18 17:25 Urine Urobilinogen 0.2 E.U./dL (0.2 - 1.0) 07/11/18 17:25 Ur Leukocyte Esterase TRACE (NEGATIVE) H 07/11/18 17:25 Urine RBC 0-2 /hpf (0-5) 07/11/18 17:25 Urine WBC 2-5 /hpf (0-5) 07/11/18 17:25 Ur Epithelial Cells FEW /lpf (FEW) 07/11/18 17:25 Urine Bacteria OCCASIONAL /hpf (NONE SEEN) 07/11/18 17:25 Vancomycin Trough 4.5 ug/mL (5-10) L 07/12/18 08:08 - Physical Exam Vitals and I&O: Vital Signs Temp 99.1 F 07/12/18 20:00 Pulse 80 07/12/18 20:00 Resp 18 07/12/18 20:00 BP 116/65 07/12/18 20:00 Pulse Ox 94 07/12/18 20:00 Intake & Output 07/12/18 07/12/18 07/13/18 06:59 18:59 06:59 Intake Total 3642 789 5123 Balance 6517 721 9957 Weight (lbs) 56.971 kg 58.06 kg Intake: Intake, IV Amount 1800 855 8698 Potassium Chloride 10 meq 1005 1005 In D5-0.9%Ns 1,000 ml @ 75 mls/hr IV .[id number] [facility] Rx#:[id number] Vancomycin HCl 0.75 gm In 250 Sodium Chloride 0.9% 250 ml @ 165 mls/hr IV Q24HR @0900 [facility] Rx#:[id number] Other: # Voids 3 4 # Bowel Movements 1 2 Stool Characteristics Soft Soft Weight Source Bedscale Bedscale Active Medications: Current Medications Acetaminophen (Tylenol) 650 mg PO Q6H PRN PRN Reason: mild-mod. pain or fever>101 Stop: 09/09/18 11:33 Acetaminophen/Hydrocodone Bitart ([place] 5mg/325mg) 1 tab PO Q4H PRN PRN Reason: Pain (Severe) Stop: 09/09/18 11:33 Al Hydrox/Mg Hydrox/Simethicone (Maalox) 30 ml PO Q6H PRN PRN Reason: GI DISTRESS Stop: 09/09/18 11:33 Albuterol/Ipratropium (Duoneb Neb) 3 ml HHN Q6HRT [facility] Stop: 09/09/18 12:59 Last Admin: 07/12/18 19:14 Dose: 3 ml Aripiprazole (Abilify) 5 mg PO DAILY [facility]; Protocol Stop: 09/10/18 08:59 Last Admin: 07/12/18 08:27 Dose: Not Given Bisacodyl (Dulcolax 10 Mg Supp) 10 mg RC DAILY [facility] Stop: 09/10/18 08:59 Last Admin: 07/12/18 08:27 Dose: 10 mg Docusate Sodium (Colace) 100 mg PO BID [facility] Stop: 09/09/18 16:59 Last Admin: 07/12/18 16:47 Dose: Not Given Donepezil HCl (Aricept) 10 mg PO DAILY [facility] Stop: 09/10/18 08:59 Last Admin: 07/12/18 08:27 Dose: 10 mg Escitalopram Oxalate (Lexapro) 10 mg PO DAILY [facility]; Protocol Stop: 09/10/18 08:59 Last Admin: 07/12/18 08:26 Dose: Not Given Levofloxacin (Levaquin Pb) 750 mg in 150 mls @ 100 mls/hr IV Q48HR@1700 [facility]; Protocol Stop: 09/09/18 16:59 Last Infusion: 07/11/18 18:00 Dose: 0 mls/hr Potassium Chloride 10 meq/ (Dextrose/Sodium Chloride) 1,005 mls @ 75 mls/hr IV .[id number] [facility] Stop: 09/09/18 11:44 Last Admin: 07/12/18 21:11 Dose: 75 mls/hr Vancomycin HCl 0.75 gm/ Sodium (Chloride) 250 mls @ 165 mls/hr IV Q24HR@0900 [facility] Stop: 09/09/18 14:59 Last Infusion: 07/12/18 11:00 Dose: Infused Lactobacillus Rhamnosus (Culturelle 15b) 1 each PO DAILY [facility] Stop: 09/10/18 08:59 Last Admin: 07/12/18 08:26 Dose: 1 each Magnesium Hydroxide (Milk Of Magnesia) 30 ml PO DAILY PRN PRN Reason: Constipation Stop: 09/09/18 11:33 Metoprolol Tartrate (Lopressor) 25 mg PO BID [facility] Stop: 09/09/18 16:59 Last Admin: 07/12/18 16:48 Dose: Not Given Miscellaneous (Vancomycin Iv Per Pharmacy) 1 ea PRN PRN PRN Reason: PROTOCOL Stop: 09/09/18 14:09 Multivitamins/Vitamin C (Theragran) 1 tab PO DAILY [facility] Stop: 09/10/18 08:59 Last Admin: 07/12/18 08:27 Dose: 1 tab Mupirocin (Bactroban Oint) 1 appl TP Q12HR [facility] Stop: 07/17/18 09:01 Last Admin: 07/12/18 20:39 Dose: 1 appl Pantoprazole Sodium (Protonix) 40 mg PO QDAC [facility] Stop: 09/10/18 07:29 Last Admin: 07/12/18 08:26 Dose: 40 mg Ropinirole HCl (Requip) 0.25 mg PO TID [facility] Stop: 09/09/18 13:59 Last Admin: 07/12/18 20:39 Dose: 0.25 mg General: weak, lethargic, congested HEENT: NC/AT, EOMI, anicteric sclerae, throat clear, thyromegaly Neck: Supple, No JVD, No LAD Lungs: congested, ronchi Cardiovascular: Normal S1 Abdomen: soft, non-tender, non-distended Extremities: clear, other (rash) Neurological: no change, lethargic Internal Medicine Assmt/Plan - Assessment Assessment: MRSA Nares: isolation. ALOC: multifactorial, observe closely. Extensive skin lesions: unclear etiology, work up in progress; ID consultation appreciated. Early Sepsis? IVPb ABX; panculture. PNA of LLL? CT scan ordered; RT protocol; IVPB ABX. Fever: better. Noncompliance: education provided. DVT prophylaxis. UTI? urine C&S ordered.
[2018-07-13] MEDS: Albuterol/Ipratropium Neb 3 ML AERS HHN SCH ×4 (00:12→19:17)
[2018-07-13] MEDS ORDERED: Probiotic Screen MC PRN (08:30)
[2018-07-13] MEDS: Pantoprazole 40 mg EC Tab PO SCH (09:09)
[2018-07-13] MEDS: Lactobacillus Rhamnosus GG 15 Billion CFU CAP.SPRINK PO SCH (09:10)
[2018-07-13] MEDS: Multivitamin Tab PO SCH (09:10)
[2018-07-13] MEDS: Levofloxacin 750mg/150mL 750 MG/150 ML BAG IV SCH (16:35)
--- NOTE | 2018-07-14 17:00 | Discharge Summary ---
DATE OF DISCHARGE: 07/13/2018 FINAL DIAGNOSIS: 1. Left lower lobe pneumonia, probably due to aspiration. Continue IVPB antibiotics. 2. Extensive skin lesion probably due to multiple flat folliculitis with infected wounds on IVPB antibiotics. 3. Altered level of consciousness. 4. Agitation, improved. 5. Bipolar disorder. 6. Depression. 7. History of psychosis. 8. Early sepsis, resolved. 9. Hyponatremia. 10. 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 HOSPITAL COURSE: The patient is an 83-year-old female admitted due to extensive skin lesion, which was probably due to multiple flat folliculitis with infected wounds. The patient was also noted to have density in the left lower lobe and CT scan of the chest revealed large hernia into the left hemithorax, but also did reveal infiltrates. The patient was started on IVPB antibiotics. She was very confused and agitated during hospitalization. Close observation was provided and the patient actually calm down. Due to her complicated medical conditions, she was accepted to [facility] in [place]. DISCHARGE CONDITION: Stable. DISPOSITION: [facility] in [place]. DISCHARGE MEDICATIONS: Continue medication from here. DIET: Cardiac, soft diet. ACTIVITY: Bed rest with physical therapy. FOLLOWUP: Same day in [place]. [facility]# [id number]
== END 2018-07-13 20:55 | DRG 871 ==
LOC: ER 13:28 → TELE 18:23 → MSI 07-13 14:34
PROVIDERS: ADMIT Internal Medicine; ATTEND Internal Medicine
DX: A41.9 Sepsis, unspecified organism (principal); J69.0 Pneumonitis due to inhalation of food and vomit; N39.0 Urinary tract infection, site not specified; E87.1 Hypo-osmolality and hyponatremia; I10 Essential (primary) hypertension; E78.5 Hyperlipidemia, unspecified; K21.9 Gastro-esophageal reflux disease without esophagitis; M19.90 Unspecified osteoarthritis, unspecified site; R21 Rash and other nonspecific skin eruption; F41.9 Anxiety disorder, unspecified; L98.9 Disorder of the skin and subcutaneous tissue, unspecified; F02.80 Dementia in other diseases classified elsewhere, unspecified severity, without behavioral disturbance, psychotic disturbance, mood disturbance, and anxiety; G30.9 Alzheimer's disease, unspecified; L73.9 Follicular disorder, unspecified; B95.62 Methicillin resistant Staphylococcus aureus infection as the cause of diseases classified elsewhere; F31.9 Bipolar disorder, unspecified; K44.9 Diaphragmatic hernia without obstruction or gangrene; Z91.19 Patient's noncompliance with other medical treatment and regimen; Z82.49 Family history of ischemic heart disease and other diseases of the circulatory system; Z95.0 Presence of cardiac pacemaker
CPT/HCPCS: 36415-UA; 71045-TC; 71250-TC; 80053-TC; 80202-TC; 81001-TC; 82550-TC; 83605; 83880-TC; 84484-TC; 85007-TC; 85025-TC; 85610-TC; 85730-TC; 87070-90; 87086-90; 93005; 94640; 94760; 97530; J1956; J3370; J3480; J7042; X3904; Z7610

== ENCOUNTER 2018-09-06 04:05 | Inpatient (IN) | payer MEDICARE, MEDICAID ==
[2018-09-06 04:41] LABS: % BASOPHILS 0.4 % (0.0-2.0); % EOSINOPHILS 5.5 % (0.0-5.0); % LYMPHOCYTES 20.2 % (20.0-50.0); % MONOCYTES 9.5 % (2.0-10.0); % NEUTROPHILS 64.4 % (40.0-80.0); EOSINOPHILE ABSOLUTE 0.2 Th/cmm (0.1-0.4); HEMATOCRIT 35.1 % (41.0-60); HEMOGLOBIN 11.6 gm/dL (12-16); LYMPHOCYTE ABSOLUTE 0.8 Th/cmm (1.5-3.0); MEAN CELL VOLUME 92.7 fl (81-100); MEAN CORPUSCULAR HEMOGLOBIN 30.7 pg (27.0-31.0); MEAN CORPUSCULAR HGB CONC 33.1 pg (28.0-36.0); MONOCYTE ABSOLUTE 0.4 Th/cmm (0.3-1.0); NEUTROPHILE ABSOLUTE 2.7 Th/cmm (1.8-8.0); PLATELET COUNT 317 Th/cmm (150-400); RED BLOOD COUNT 3.79 Mil/cmm (3.80-5.20); RED CELL DISTRIBUTION WIDTH 13.6 % (11.5-20.0); WHITE BLOOD COUNT 4.1 Th/cmm (4.8-10.8)
--- NOTE | 2018-09-06 04:50 | ED Physician Chart ---
ED Chief Complaint/HPI - Patient Information Date Seen:: 09/06/18 Time Seen:: 04:10 Chief Complaint:: Weakness History of Present Illness:: onset x 4 hours of weakness, dizziness, N/V/D x 3; no report of trauma, LOC, ALOC, AMS, H/As, S/T, neck pain, C/P, SOB, Abd. Pain, A/C, fever, chills, or urinary s/s Allergies:: Allergies Allergy/AdvReac Type Severity Reaction Status Date / Time Penicillins [PCN] Allergy Verified 03/21/18 18:40 Vitals:: Vital Signs - 8 hr 09/06/18 04:09 Temp 98.3 F HR 77 RR 18 BP 105/39 O2 Sat % 97 Historian:: Patient, EMS Review:: Nurse's Note Reviewed, Old Chart Reviewed, EMS run form Reviewed ED Review of Systems - Review of Systems General/Constitutional: Fever, No chills, No weight loss, Weakness, No diaphoresis, No edema, No loss of appetite Skin: No skin lesions, No rash, No bruising Head: No headache, No light-headedness Eyes: No loss of vision, No pain, No diplopia ENT: No earache, No nasal drainage, No sore throat, No tinnitus Neck: No neck pain, No swelling, No thyromegaly, No stiffness, No mass noted Cardio Vascular: No chest pain, No palpitations, No PND, No orthopnea, No edema Pulmonary: No SOB, No cough, No sputum, No wheezing GI: Nausea, Vomiting, Diarrhea, Pain, No melena, No hematochezia, No constipation, No hematemesis G/U: No dysuria, No frequency, No hematuria 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 vaginal discharge, No abnormal vaginal bleed, No contraction Musculoskeletal: No bone or joint pain, No back pain, No muscle pain Endocrine: No polyuria, No polydipsia Psychiatric: Prior psych history, Depression, Anxiety, No suicidal ideation, No homicidal ideation, No auditory hallucination, No visual hallucination Hematopoietic: No bruising, No lymphadenopathy Allergic/Immuno: No urticaria, No angioedema Neurological: No syncope, No focal symptoms, Weakness, No paresthesia, No headache, No seizure, Dizziness, Confusion, Vertigo ED Past Medical History - Past Medical History Obtainable: Yes Past Medical History: HTN, Asthma/COPD, Dyslipidemia, PUD/GERD, Arthritis, Dementia Family History: HTN Social History: Non Smoker, No Alcohol, No Drug Use, , Care Facility Surgical History: None Psychiatricy History: Depression, Bipolar Medication: Reviewed Family Medical History - Family Member Mother History Unknown: Yes Ethnicity: Unknown Living Status: Unknown ED Physical Exam - Physical Examination General/Constitutional: Awake, Well-developed, well-nourished, Alert, No distress, GCS 15, Non-toxic appearing, Ambulatory Head: Atraumatic Eyes: Lids, conjuctiva normal, PERRL, EOMI Skin: Nl inspection, No rash, No skin lesions, No ecchymosis, Well hydrated, No lymphadenopathy ENMT: External ears, nose nl, TM canals nl, Nasal exam nl, Lips, teeth, gums nl , Oropharynx nl, Tonsils nl Neck: Nontender, Full ROM w/o pain, No JVD, No nuchal rigidity, No bruit, No mass, No stridor Respiratory: Nl effort/Exclusion, Clear to Auscultation, No Wheeze/Rhonchi/Rales Cardio Vascular: RRR, No murmur, gallop, rubs, NL S1 S2, Carotid/Femoral/Distal pulses equal bilaterally GI: No tenderness/rebounding/guarding, No organomegaly, No hernia, Normal BS's, Nondistended, No mass/bruits, No McBurney tenderness, Rectum exam nl : No CVA tenderness Extremities: No tenderness or effusion, Full ROM, normal strength in all extremities, No edema, Normal digits & nails Neuro/Psych: Alert/oriented, DTR's symmetric, Normal sensory exam, Normal motor strength, Judgement/insight normal, Mood normal, Normal gait, No focal deficits Misc: Normal back, No paraspinal tenderness ED Labs/Radiology/EKG Results - Lab Results Results: Laboratory Tests 09/06/18 04:35 WBC 4.1 L RBC 3.79 L Hgb 11.6 L Hct 35.1 L MCV 92.7 MCH 30.7 MCHC Differential 33.1 RDW 13.6 Plt Count 317 MPV 7.0 Neutrophils % 64.4 Lymphocytes % 20.2 Monocytes % 9.5 Eosinophils % 5.5 H Basophils % 0.4 Comments:: Reviewed - Radiology Results Comments:: Reviewed - EKG Interpretations EKG Time:: 04:30 Rate & Rhythm: 78; NSR Comments:: non-specific st-t changes ED Septic Shock - . Is Septic Shock (SBP<90, OR Lactate>4 mmol\L) present?: No - <6hrs of presentation: Vital Signs: Vital Signs - 8 hr 09/06/18 04:09 Temp 98.3 F HR 77 RR 18 BP 105/39 O2 Sat % 97 ED Reassessment (Disposition) - Reassessment Reassessment Condition:: Improved - Diagnosis Diagnosis:: Anemia; Leukopenia; N/V/D; Gastritis; AGE; Weakness; Hematuria; UTI; Sepsis - Aftercare/Follow up Instructions Aftercare/Follow-Up Instructions:: Counseled pt regarding lab results/diagnosis & need follow up, Counseled pt & family regarding lab results/diagnosis & need follow up - Patient Disposition Discharge/Transfer:: Acute Care w/in this hosp Accepting Physician:: Dr. Ybarra Time Called:: 0600 Time Responded:: 06:00 Admitted to:: Med/Surg Spoke to:: Dr. Ybarra Admitting Medical Physician:: Dr. Cadena Condition at Disposition:: Stable, Improved
[2018-09-06 04:57] LABS: INR 0.91 (0.5-1.4); PROTHROMBIN TIME (TEST) 9.5 SECONDS (9.5-11.5)
[2018-09-06] MEDS: Sodium Chloride 0.9% 1,000 ML IV ONE ×2 (05:05→12:24)
[2018-09-06 05:16] LABS: ALB/GLOB RATIO 0.9 (1.0-1.8); ALBUMIN 3.4 gm/dL (3.7-5.3); ALKALINE PHOSPHATASE 60 U/L (34-104); AMYLASE SERUM 55 U/L (29-103); BILIRUBIN,TOTAL 0.5 mg/dL (0.3-1.0); BUN - UREA NITROGEN 19 mg/dL (7-25); CALCIUM SERUM 8.5 mg/dL (8.6-10.3); CHLORIDE 107 mEq/L (98-107); CHOLESTEROL 192 mg/dL (<200); CREATININE - SERUM 0.7 mg/dL (0.6-1.2); CREATININE KINASE 27 U/L (30-223); GLUCOSE 92 mg/dL (70-105); HDL -HIGH DENSITY LIPOPROTEIN 56 mg/dL (23-92); LIPASE 15 U/L (11-82); SGOT 12 U/L (13-39); SGPT/ALT 8 U/L (7-52); SODIUM SERUM 139 mEq/L (136-145); TOTAL PROTEIN,SERUM 7.4 gm/dL (6.0-8.3); TRIGLYCERIDES 84 mg/dL (<150)
[2018-09-06 05:59] LABS: URINE SOURCE CATH
[2018-09-06 06:02] LABS: URINE BILIRUBIN NEGATIVE (NEGATIVE); URINE BLOOD SMALL (NEGATIVE); URINE GLUCOSE (UA) NEGATIVE (NEGATIVE); URINE KETONE NEGATIVE (NEGATIVE); URINE LEUKOCYTE ESTERASE LARGE (NEGATIVE); URINE MICROSCOPIC INDICATED? YES; URINE NITRATE POSITIVE (NEGATIVE); URINE PROTEIN 30 mg/dL (NEGATIVE); URINE UROBILINOGEN 0.2 E.U./dL (0.2 - 1.0)
[2018-09-06 06:09] LABS: URINE CLARITY HAZY (CLEAR); URINE COLOR YELLOW
[2018-09-06 06:11] LABS: URINE EPITHELIAL CELLS MODERATE /lpf (FEW); URINE RBC 0-2 /hpf (0-5); URINE WBC 50-100 /hpf (0-5)
[2018-09-06 06:12] LABS: URINE BACTERIA MANY /hpf (NONE SEEN)
[2018-09-06] MEDS ORDERED: Levofloxacin 500mg/100mL 500 MG/100 ML BAG IV ONE ×2 (06:36→06:43)
[2018-09-06 08:32] VITALS: BP 118/74
--- NOTE | 2018-09-06 08:43 | Diagnostic Imaging Report ---
CHEST X-RAY: AP view INDICATION: Sepsis COMPARISON: CT chest on 07/11/2018 FINDINGS: Suboptimal lung volumes are seen with chronic lung changes. There appears to be left hiatal hernia accounting for density along left lung base. Small left effusion is noted. Atherosclerotic noted. Heart size difficult to assess. Biapical pleural thickening is noted. Degenerative changes of the spine are noted with scoliosis. IMPRESSION: Left basal density probably related to a hiatal hernia when compared to previous CT examination. There is also a small left effusion. Pneumonia of the left lung base cannot be excluded. Atherosclerotic vascular disease.
[2018-09-06] MEDS ORDERED: Hydrocodone/APAP 5mg/325mg Tab PO PRN (08:58)
[2018-09-06] MEDS ORDERED: Maalox 30 mL Cup PO PRN (08:58)
[2018-09-06] MEDS ORDERED: Magnesium Hydroxide (MOM) 30 mL UDC PO PRN (09:00)
[2018-09-06] MEDS ORDERED: Non-Formulary Item 1 EA (Docusate Sodium 100 MG) PO SCH (09:00)
[2018-09-06] MEDS ORDERED: Non-Formulary Item 1 EA (Cetirizine Hcl [Zyrtec] 10 MG) PO SCH (09:00)
[2018-09-06] MEDS ORDERED: [UNRECOGNIZED DRUG - OTHER] TP SCH (09:00)
[2018-09-06] MEDS ORDERED: Non-Formulary Item 1 EA (Cranberry Fruit Concentrate [Cranberry] 450 MG) PO SCH (09:00)
[2018-09-06] MEDS: Levofloxacin 500mg/100mL 500 MG/100 ML BAG IV SCH (10:53)
[2018-09-06] MEDS: Lactobacillus Rhamnosus GG 15 Billion CFU CAP.SPRINK PO SCH (11:14)
[2018-09-06] MEDS: Multivitamin Tab PO SCH (11:15)
[2018-09-06] MEDS: Calcium Carb/Vit D 500 mg/200 U Tab PO SCH (11:24)
[2018-09-06] MEDS: Albuterol/Ipratropium Neb 3 ML AERS HHN SCH ×2 (14:01→19:28)
--- NOTE | 2018-09-07 00:51 | History & Physical ---
ADMIT DATE: 09/06/2018 CHIEF COMPLAINT: Vomiting multiple times and weakness. HISTORY OF PRESENT ILLNESS: The patient is an 83-year-old female admitted from the Emergency Room to telemetry floor of [facility]. I was notified earlier by the nursing staff from the custodial where the patient resides with complaint of vomiting x 4. Additionally, the patient was lethargic and much more confused than her baseline mental status. In the Emergency Room, the patient's vital signs were basically stable except blood pressure on the lower side. Her WBC is 4100, which is low. Her UA revealed positive nitrite, large leukocyte esterase, 100 wbc's, and many bacteria. Urine culture and blood cultures were ordered and empiric antibiotic started, which will be adjusted accordingly. The patient is very lethargic and confused compared to her baseline status as I know her well. PAST MEDICAL HISTORY: COPD, pneumonia, urinary tract infection, psychosis, depression, anxiety, Alzheimer disease, chronic pain syndrome due to degenerative joint disease. PAST SURGICAL HISTORY: Denies significant past surgeries. MEDICATIONS: See medication reconciliation list. ALLERGIES: PENICILLIN. FAMILY HISTORY: Noncontributory. SOCIAL HISTORY: This cannot be reliably obtained. REVIEW OF SYSTEMS: Not feasible due to patient's mental status. PHYSICAL EXAMINATION: GENERAL: Well-developed female, in no acute distress. SKIN: There are few rashes. VITAL SIGNS: Basically stable. HEENT: Normocephalic, atraumatic. Pupils equal, round, react to light and accommodation. CHEST: Symmetrical. LUNGS: Few wheezing appreciated. CARDIAC: Normal sinus rhythm. S1, S2. ABDOMEN: Benign, soft, nontender. EXTREMITIES: No clubbing, cyanosis, edema . NEUROLOGICAL: Unremarkable. LABORATORY DATA: Reviewed as seen from the computer significant for positive nitrites, large leukocyte esterase, 100 wbc's, and many bacteria in the urine as well as leukopenia. ASSESSMENT: 1. Altered level of consciousness: Probably due to metabolic encephalopathy and dementia and we will observe closely in the telemetry floor. 2. Severe urinary tract infection: Urine culture and blood culture ordered and empiric antibiotics started, which will be adjusted accordingly. 3. Leukopenia: We will repeat a CBC. 4. Nausea, vomiting: This has improved. 5. Chronic obstructive pulmonary disease. RT protocol. 6. Deep venous thrombosis prophylaxis. 7. History of Alzheimer disease: Continue Aricept. 8. History of chronic pain syndrome due to degenerative joint disease: We will continue her medication, adjust accordingly. 9. DVT prophylaxis. JOB# [id number]
[2018-09-07] MEDS: Albuterol/Ipratropium Neb 3 ML AERS HHN SCH ×4 (01:25→19:09)
[2018-09-07] MEDS: Pantoprazole 40 mg EC Tab PO SCH (06:35)
[2018-09-07] MEDS: Calcium Carb/Vit D 500 mg/200 U Tab PO SCH (08:34)
[2018-09-07] MEDS: Multivitamin Tab PO SCH (08:34)
[2018-09-07] MEDS: Lactobacillus Rhamnosus GG 15 Billion CFU CAP.SPRINK PO SCH (08:34)
[2018-09-07] MEDS: Levofloxacin 500mg/100mL 500 MG/100 ML BAG IV SCH (08:44)
[2018-09-07] MEDS ORDERED: Probiotic Screen MC PRN (10:14)
--- NOTE | 2018-09-07 20:53 | Internal Medicine Prog Note ---
Internal Medicine Subjective - Subjective Service Date: 09/07/18 Patient seen and examined:: without staff Patient is:: awake, non-verbal, non-interactive, arousable, in bed Patient Complaints of:: congestion Per staff patient has:: no adverse event Internal Medicine Objective - Results Result Diagrams: 09/06/18 04:35 09/06/18 04:35 Recent Labs: Laboratory Last Values WBC 4.1 Th/cmm (4.8-10.8) L 09/06/18 04:35 RBC 3.79 Mil/cmm (3.80-5.20) L 09/06/18 04:35 Hgb 11.6 gm/dL (12-16) L 09/06/18 04:35 Hct 35.1 % (41.0-60) L 09/06/18 04:35 MCV 92.7 fl (81-100) 09/06/18 04:35 MCH 30.7 pg (27.0-31.0) 09/06/18 04:35 MCHC Differential 33.1 pg (28.0-36.0) 09/06/18 04:35 RDW 13.6 % (11.5-20.0) 09/06/18 04:35 Plt Count 317 Th/cmm (150-400) 09/06/18 04:35 MPV 7.0 fl 09/06/18 04:35 Neutrophils % 64.4 % (40.0-80.0) 09/06/18 04:35 Lymphocytes % 20.2 % (20.0-50.0) 09/06/18 04:35 Monocytes % 9.5 % (2.0-10.0) 09/06/18 04:35 Eosinophils % 5.5 % (0.0-5.0) H 09/06/18 04:35 Basophils % 0.4 % (0.0-2.0) 09/06/18 04:35 PT 9.5 SECONDS (9.5-11.5) 09/06/18 04:35 INR 0.91 (0.5-1.4) 09/06/18 04:35 Sodium 139 mEq/L (136-145) 09/06/18 04:35 Potassium 4.0 mEq/L (3.5-5.1) 09/06/18 04:35 Chloride 107 mEq/L (98-107) 09/06/18 04:35 Carbon Dioxide 27.0 mEq/L (21.0-31.0) 09/06/18 04:35 Anion Gap 9.0 (7.0-16.0) 09/06/18 04:35 BUN 19 mg/dL (7-25) 09/06/18 04:35 Creatinine 0.7 mg/dL (0.6-1.2) 09/06/18 04:35 Est GFR ( Amer) TNP 09/06/18 04:35 Est GFR (Non-Af Amer) TNP 09/06/18 04:35 BUN/Creatinine Ratio 27.1 09/06/18 04:35 Glucose 92 mg/dL (70-105) 09/06/18 04:35 Calcium 8.5 mg/dL (8.6-10.3) L 09/06/18 04:35 Total Bilirubin 0.5 mg/dL (0.3-1.0) 09/06/18 04:35 AST 12 U/L (13-39) L 09/06/18 04:35 ALT 8 U/L (7-52) 09/06/18 04:35 Alkaline Phosphatase 60 U/L (34-104) 09/06/18 04:35 Creatine Kinase 27 U/L (30-223) L 09/06/18 04:35 Troponin I 0.04 ng/mL (0.01-0.05) 09/06/18 04:35 B-Natriuretic Peptide 107.0 pg/mL (5.0-100.0) H 09/06/18 04:35 Total Protein 7.4 gm/dL (6.0-8.3) 09/06/18 04:35 Albumin 3.4 gm/dL (3.7-5.3) L 09/06/18 04:35 Globulin 4.0 gm/dL 09/06/18 04:35 Albumin/Globulin Ratio 0.9 (1.0-1.8) L 09/06/18 04:35 Triglycerides 84 mg/dL (<150) 09/06/18 04:35 Cholesterol 192 mg/dL (<200) 09/06/18 04:35 LDL Cholesterol Direct 125 mg/dL (75-193) 09/06/18 04:35 HDL Cholesterol 56 mg/dL (23-92) 09/06/18 04:35 Amylase 55 U/L (29-103) 09/06/18 04:35 Lipase 15 U/L (11-82) 09/06/18 04:35 Urine Source CATH 09/06/18 05:15 Urine Color YELLOW 09/06/18 05:15 Urine Clarity HAZY (CLEAR) 09/06/18 05:15 Urine pH 6.0 (4.6 - 8.0) 09/06/18 05:15 Ur Specific [place] >= 1.030 (1.005-1.030) 09/06/18 05:15 Urine Protein 30 mg/dL (NEGATIVE) H 09/06/18 05:15 Urine Glucose (UA) NEGATIVE mg/dL (NEGATIVE) 09/06/18 05:15 Urine Ketones NEGATIVE mg/dL (NEGATIVE) 09/06/18 05:15 Urine Blood SMALL (NEGATIVE) H 09/06/18 05:15 Urine Nitrate POSITIVE (NEGATIVE) H 09/06/18 05:15 Urine Bilirubin NEGATIVE (NEGATIVE) 09/06/18 05:15 Urine Urobilinogen 0.2 E.U./dL (0.2 - 1.0) 09/06/18 05:15 Ur Leukocyte Esterase LARGE (NEGATIVE) H 09/06/18 05:15 Urine RBC 0-2 /hpf (0-5) 09/06/18 05:15 Urine WBC 50-100 /hpf (0-5) H 09/06/18 05:15 Ur Epithelial Cells MODERATE /lpf (FEW) 09/06/18 05:15 Urine Bacteria MANY /hpf (NONE SEEN) H 09/06/18 05:15 - Physical Exam Vitals and I&O: Vital Signs Temp 97.4 F 09/07/18 15:38 Pulse 77 09/07/18 19:20 Resp 18 09/07/18 19:20 BP 107/46 09/07/18 16:07 Pulse Ox 98 09/07/18 19:20 Intake & Output 09/07/18 09/07/18 09/08/18 06:59 18:59 06:59 Intake Total 1120 500 Balance 1120 500 Weight (lbs) 58.06 kg 59.421 kg Intake: Intake, IV Amount 1000 Oral 120 500 Other: # Voids 3 4 # Bowel Movements 2 Weight Source Bedscale Bedscale Active Medications: Current Medications Acetaminophen (Tylenol) 650 mg PO Q6H PRN PRN Reason: pain or fever>101 Stop: 11/05/18 08:57 Acetaminophen/Hydrocodone Bitart ([place] 5mg/325mg) 1 tab PO Q4H PRN PRN Reason: Pain (Severe) Stop: 11/05/18 08:57 Al Hydrox/Mg Hydrox/Simethicone (Maalox) 30 ml PO Q6H PRN PRN Reason: GI DISTRESS Stop: 11/05/18 08:57 Albuterol/Ipratropium (Duoneb Neb) 3 ml HHN Q6HR [facility] Stop: 11/05/18 11:59 Last Admin: 09/07/18 19:09 Dose: 3 ml Amlodipine Besylate (Norvasc) 5 mg PO DAILY [facility] Stop: 11/06/18 08:59 Last Admin: 09/07/18 08:35 Dose: 5 mg Aripiprazole (Abilify) 5 mg PO DAILY [facility]; Protocol Stop: 11/05/18 08:59 Last Admin: 09/07/18 08:34 Dose: 5 mg Bisacodyl (Dulcolax 10 Mg Supp) 10 mg RC DAILY [facility] Stop: 11/05/18 08:59 Last Admin: 09/07/18 08:35 Dose: 10 mg Calcium/Vitamin D (Oscal W/Vitamin D) 1 tab PO DAILY [facility] Stop: 11/05/18 08:59 Last Admin: 09/07/18 08:34 Dose: 1 tab Docusate Sodium (Colace) 100 mg PO BID [facility] Stop: 11/05/18 16:59 Last Admin: 09/07/18 16:06 Dose: 100 mg Donepezil HCl (Aricept) 10 mg PO DAILY [facility] Stop: 11/05/18 08:59 Last Admin: 09/07/18 08:33 Dose: 10 mg Gabapentin (Neurontin) 100 mg PO DAILY [facility] Stop: 11/05/18 08:59 Last Admin: 09/07/18 08:34 Dose: 100 mg Levofloxacin (Levaquin Pb) 500 mg in 100 mls @ 100 mls/hr IV Q24HR [facility] Stop: 11/05/18 09:14 Last Admin: 09/07/18 08:44 Dose: 100 mls/hr Lactobacillus Rhamnosus (Culturelle 15b) 1 each PO DAILY [facility] Stop: 11/05/18 08:59 Last Admin: 09/07/18 08:34 Dose: 1 each Loratadine (Claritin) 10 mg PO DAILY [facility] Stop: 11/06/18 08:59 Last Admin: 09/07/18 08:33 Dose: 10 mg Lorazepam (Ativan) 0.5 mg PO Q6HR PRN; Protocol PRN Reason: Anxiety Stop: 11/05/18 08:59 Magnesium Hydroxide (Milk Of Magnesia) 30 ml PO DAILY PRN PRN Reason: Constipation Stop: 11/05/18 08:59 Metoprolol Tartrate (Lopressor) 25 mg PO BID [facility] Stop: 11/05/18 08:59 Last Admin: 09/07/18 16:07 Dose: Not Given Miscellaneous (Probiotic Screen) 1 ea [facility] PRN PRN PRN Reason: PROTOCOL Stop: 11/06/18 10:13 Multivitamins/Vitamin C (Theragran) 1 tab PO DAILY [facility] Stop: 11/05/18 08:59 Last Admin: 09/07/18 08:34 Dose: 1 tab Mupirocin (Bactroban Oint) 1 appl TP TID [facility] Stop: 11/05/18 13:59 Last Admin: 09/07/18 20:25 Dose: 1 appl Pantoprazole Sodium (Protonix) 40 mg PO QDAC [facility] Stop: 11/06/18 07:29 Last Admin: 09/07/18 06:35 Dose: 40 mg Quetiapine Fumarate (Seroquel) 25 mg PO BID [facility]; Protocol Stop: 11/05/18 08:59 Last Admin: 09/07/18 16:07 Dose: 25 mg Ropinirole HCl (Requip) 0.25 mg PO TID [facility] Stop: 11/05/18 08:59 Last Admin: 09/07/18 20:25 Dose: 0.25 mg Sucralfate (Carafate) 1 gm PO ACHS [facility] Stop: 11/05/18 11:29 Last Admin: 09/07/18 20:25 Dose: 1 gm General: weak, lethargic, congested, demented, cachectic HEENT: NC/AT, PERRLA Neck: Supple, No JVD, No thyromegaly, +2 carotid pulse wo bruit, No LAD Lungs: congested, wheezing Cardiovascular: RRR, Normal S1, Normal S2, without murmur Abdomen: soft, non-distended, positive bowel sound Extremities: clear Neurological: no change Internal Medicine Assmt/Plan - Assessment Assessment: GNR UTI: pending final culture results. ALOC: observe. Leukopenia: repeat cbc. COPD: RT protocol. Alzheimer's disease. H/O psychosis: better controlled. DVT prophylaxis.
[2018-09-08] MEDS: Albuterol/Ipratropium Neb 3 ML AERS HHN SCH ×4 (01:02→19:03)
[2018-09-08] MEDS: Pantoprazole 40 mg EC Tab PO SCH (06:35)
[2018-09-08] MEDS: Lactobacillus Rhamnosus GG 15 Billion CFU CAP.SPRINK PO SCH (08:48)
[2018-09-08] MEDS: Calcium Carb/Vit D 500 mg/200 U Tab PO SCH (08:49)
[2018-09-08] MEDS: Multivitamin Tab PO SCH (08:49)
[2018-09-08] MEDS: Levofloxacin 500mg/100mL 500 MG/100 ML BAG IV SCH (08:57)
--- NOTE | 2018-09-08 23:46 | Internal Medicine Prog Note ---
Internal Medicine Subjective - Subjective Service Date: 09/08/18 Patient seen and examined:: without staff Patient is:: awake, non-verbal, non-interactive, arousable, in bed Patient Complaints of:: congestion Per staff patient has:: no adverse event Internal Medicine Objective - Results Result Diagrams: 09/06/18 04:35 09/06/18 04:35 Recent Labs: Laboratory Last Values WBC 4.1 Th/cmm (4.8-10.8) L 09/06/18 04:35 RBC 3.79 Mil/cmm (3.80-5.20) L 09/06/18 04:35 Hgb 11.6 gm/dL (12-16) L 09/06/18 04:35 Hct 35.1 % (41.0-60) L 09/06/18 04:35 MCV 92.7 fl (81-100) 09/06/18 04:35 MCH 30.7 pg (27.0-31.0) 09/06/18 04:35 MCHC Differential 33.1 pg (28.0-36.0) 09/06/18 04:35 RDW 13.6 % (11.5-20.0) 09/06/18 04:35 Plt Count 317 Th/cmm (150-400) 09/06/18 04:35 MPV 7.0 fl 09/06/18 04:35 Neutrophils % 64.4 % (40.0-80.0) 09/06/18 04:35 Lymphocytes % 20.2 % (20.0-50.0) 09/06/18 04:35 Monocytes % 9.5 % (2.0-10.0) 09/06/18 04:35 Eosinophils % 5.5 % (0.0-5.0) H 09/06/18 04:35 Basophils % 0.4 % (0.0-2.0) 09/06/18 04:35 PT 9.5 SECONDS (9.5-11.5) 09/06/18 04:35 INR 0.91 (0.5-1.4) 09/06/18 04:35 Sodium 139 mEq/L (136-145) 09/06/18 04:35 Potassium 4.0 mEq/L (3.5-5.1) 09/06/18 04:35 Chloride 107 mEq/L (98-107) 09/06/18 04:35 Carbon Dioxide 27.0 mEq/L (21.0-31.0) 09/06/18 04:35 Anion Gap 9.0 (7.0-16.0) 09/06/18 04:35 BUN 19 mg/dL (7-25) 09/06/18 04:35 Creatinine 0.7 mg/dL (0.6-1.2) 09/06/18 04:35 Est GFR ( Amer) TNP 09/06/18 04:35 Est GFR (Non-Af Amer) TNP 09/06/18 04:35 BUN/Creatinine Ratio 27.1 09/06/18 04:35 Glucose 92 mg/dL (70-105) 09/06/18 04:35 Calcium 8.5 mg/dL (8.6-10.3) L 09/06/18 04:35 Total Bilirubin 0.5 mg/dL (0.3-1.0) 09/06/18 04:35 AST 12 U/L (13-39) L 09/06/18 04:35 ALT 8 U/L (7-52) 09/06/18 04:35 Alkaline Phosphatase 60 U/L (34-104) 09/06/18 04:35 Creatine Kinase 27 U/L (30-223) L 09/06/18 04:35 Troponin I 0.04 ng/mL (0.01-0.05) 09/06/18 04:35 B-Natriuretic Peptide 107.0 pg/mL (5.0-100.0) H 09/06/18 04:35 Total Protein 7.4 gm/dL (6.0-8.3) 09/06/18 04:35 Albumin 3.4 gm/dL (3.7-5.3) L 09/06/18 04:35 Globulin 4.0 gm/dL 09/06/18 04:35 Albumin/Globulin Ratio 0.9 (1.0-1.8) L 09/06/18 04:35 Triglycerides 84 mg/dL (<150) 09/06/18 04:35 Cholesterol 192 mg/dL (<200) 09/06/18 04:35 LDL Cholesterol Direct 125 mg/dL (75-193) 09/06/18 04:35 HDL Cholesterol 56 mg/dL (23-92) 09/06/18 04:35 Amylase 55 U/L (29-103) 09/06/18 04:35 Lipase 15 U/L (11-82) 09/06/18 04:35 Urine Source CATH 09/06/18 05:15 Urine Color YELLOW 09/06/18 05:15 Urine Clarity HAZY (CLEAR) 09/06/18 05:15 Urine pH 6.0 (4.6 - 8.0) 09/06/18 05:15 Ur Specific [place] >= 1.030 (1.005-1.030) 09/06/18 05:15 Urine Protein 30 mg/dL (NEGATIVE) H 09/06/18 05:15 Urine Glucose (UA) NEGATIVE mg/dL (NEGATIVE) 09/06/18 05:15 Urine Ketones NEGATIVE mg/dL (NEGATIVE) 09/06/18 05:15 Urine Blood SMALL (NEGATIVE) H 09/06/18 05:15 Urine Nitrate POSITIVE (NEGATIVE) H 09/06/18 05:15 Urine Bilirubin NEGATIVE (NEGATIVE) 09/06/18 05:15 Urine Urobilinogen 0.2 E.U./dL (0.2 - 1.0) 09/06/18 05:15 Ur Leukocyte Esterase LARGE (NEGATIVE) H 09/06/18 05:15 Urine RBC 0-2 /hpf (0-5) 09/06/18 05:15 Urine WBC 50-100 /hpf (0-5) H 09/06/18 05:15 Ur Epithelial Cells MODERATE /lpf (FEW) 09/06/18 05:15 Urine Bacteria MANY /hpf (NONE SEEN) H 09/06/18 05:15 - Physical Exam Vitals and I&O: Vital Signs Temp 98 F 09/08/18 16:00 Pulse 82 09/08/18 19:07 Resp 18 09/08/18 19:07 BP 123/73 09/08/18 16:27 Pulse Ox 98 09/08/18 19:07 Intake & Output 09/08/18 09/08/18 09/09/18 06:59 18:59 06:59 Intake Total 500 Balance 500 Weight (lbs) 55.792 kg 57.606 kg Intake: Oral 500 Other: # Voids 3 # Bowel Movements 1 Weight Source Bedscale Bedscale Active Medications: Current Medications Acetaminophen (Tylenol) 650 mg PO Q6H PRN PRN Reason: pain or fever>101 Stop: 11/05/18 08:57 Acetaminophen/Hydrocodone Bitart ([place] 5mg/325mg) 1 tab PO Q4H PRN PRN Reason: Pain (Severe) Stop: 11/05/18 08:57 Al Hydrox/Mg Hydrox/Simethicone (Maalox) 30 ml PO Q6H PRN PRN Reason: GI DISTRESS Stop: 11/05/18 08:57 Albuterol/Ipratropium (Duoneb Neb) 3 ml HHN Q6HR [facility] Stop: 11/05/18 11:59 Last Admin: 09/08/18 19:03 Dose: 3 ml Amlodipine Besylate (Norvasc) 5 mg PO DAILY [facility] Stop: 11/06/18 08:59 Last Admin: 09/08/18 08:49 Dose: 5 mg Aripiprazole (Abilify) 5 mg PO DAILY [facility]; Protocol Stop: 11/05/18 08:59 Last Admin: 09/08/18 08:47 Dose: 5 mg Bisacodyl (Dulcolax 10 Mg Supp) 10 mg RC DAILY [facility] Stop: 11/05/18 08:59 Last Admin: 09/08/18 08:49 Dose: 10 mg Calcium/Vitamin D (Oscal W/Vitamin D) 1 tab PO DAILY [facility] Stop: 11/05/18 08:59 Last Admin: 09/08/18 08:49 Dose: 1 tab Docusate Sodium (Colace) 100 mg PO BID [facility] Stop: 11/05/18 16:59 Last Admin: 09/08/18 16:26 Dose: 100 mg Donepezil HCl (Aricept) 10 mg PO DAILY [facility] Stop: 11/05/18 08:59 Last Admin: 09/08/18 08:48 Dose: 10 mg Gabapentin (Neurontin) 100 mg PO DAILY [facility] Stop: 11/05/18 08:59 Last Admin: 09/08/18 08:48 Dose: 100 mg Gentamicin Sulfate 80 mg/ (Sodium Chloride) 102 mls @ 100 mls/hr IV Q24HR@0900 [facility] Stop: 11/08/18 08:59 Lactobacillus Rhamnosus (Culturelle 15b) 1 each PO DAILY [facility] Stop: 11/05/18 08:59 Last Admin: 09/08/18 08:48 Dose: 1 each Loratadine (Claritin) 10 mg PO DAILY [facility] Stop: 11/06/18 08:59 Last Admin: 09/08/18 08:48 Dose: 10 mg Lorazepam (Ativan) 0.5 mg PO Q6HR PRN; Protocol PRN Reason: Anxiety Stop: 11/05/18 08:59 Last Admin: 09/08/18 00:27 Dose: 0.5 mg Magnesium Hydroxide (Milk Of Magnesia) 30 ml PO DAILY PRN PRN Reason: Constipation Stop: 11/05/18 08:59 Metoprolol Tartrate (Lopressor) 25 mg PO BID [facility] Stop: 11/05/18 08:59 Last Admin: 09/08/18 16:27 Dose: 25 mg Miscellaneous (Probiotic Screen) 1 ea PRN PRN PRN Reason: PROTOCOL Stop: 11/06/18 10:13 Miscellaneous (Gentamicin Iv Per Pharmacy) 1 [facility] PRN PRN PRN Reason: PROTOCOL Stop: 11/07/18 15:09 Multivitamins/Vitamin C (Theragran) 1 tab PO DAILY [facility] Stop: 11/05/18 08:59 Last Admin: 09/08/18 08:49 Dose: 1 tab Mupirocin (Bactroban Oint) 1 appl TP TID [facility] Stop: 11/05/18 13:59 Last Admin: 09/08/18 20:49 Dose: 1 appl Pantoprazole Sodium (Protonix) 40 mg PO QDAC [facility] Stop: 11/06/18 07:29 Last Admin: 09/08/18 06:35 Dose: 40 mg Quetiapine Fumarate (Seroquel) 25 mg PO BID [facility]; Protocol Stop: 11/05/18 08:59 Last Admin: 09/08/18 16:27 Dose: 25 mg Ropinirole HCl (Requip) 0.25 mg PO TID [facility] Stop: 11/05/18 08:59 Last Admin: 09/08/18 20:49 Dose: 0.25 mg Sucralfate (Carafate) 1 gm PO ACHS [facility] Stop: 11/05/18 11:29 Last Admin: 09/08/18 20:49 Dose: 1 gm General: weak, lethargic, congested, demented, cachectic HEENT: NC/AT, PERRLA Neck: Supple, No JVD, No thyromegaly, +2 carotid pulse wo bruit, No LAD Lungs: congested, wheezing Cardiovascular: RRR, Normal S1, Normal S2, without murmur Abdomen: soft, non-distended, positive bowel sound Extremities: clear Neurological: no change Internal Medicine Assmt/Plan - Assessment Assessment: MDRO E. Coli UTI: DCed Levaquin IVPB; started Gentamicin IVPB. ALOC: observe. Leukopenia: repeat cbc. COPD: RT protocol. Alzheimer's disease. H/O psychosis: better controlled. DVT prophylaxis.
[2018-09-09] MEDS: Albuterol/Ipratropium Neb 3 ML AERS HHN SCH ×3 (02:31→12:03)
[2018-09-09 05:43] LABS: % BASOPHILS 0.1 % (0.0-2.0); % LYMPHOCYTES 20.4 % (20.0-50.0); % MONOCYTES 9.7 % (2.0-10.0); % NEUTROPHILS 62.8 % (40.0-80.0); EOSINOPHILE ABSOLUTE 0.3 Th/cmm (0.1-0.4); HEMOGLOBIN 11.5 gm/dL (12-16); LYMPHOCYTE ABSOLUTE 0.8 Th/cmm (1.5-3.0); MEAN CORPUSCULAR HGB CONC 34.8 pg (28.0-36.0); MEAN PLATELET VOLUME 7.2 fl; MONOCYTE ABSOLUTE 0.4 Th/cmm (0.3-1.0); NEUTROPHILE ABSOLUTE 2.6 Th/cmm (1.8-8.0); PLATELET COUNT 282 Th/cmm (150-400); RED BLOOD COUNT 3.58 Mil/cmm (3.80-5.20); RED CELL DISTRIBUTION WIDTH 14.3 % (11.5-20.0); WHITE BLOOD COUNT 4.1 Th/cmm (4.8-10.8)
[2018-09-09 05:57] LABS: ANION GAP 11.4 (7.0-16.0); BUN - UREA NITROGEN 15 mg/dL (7-25); CALCIUM SERUM 8.9 mg/dL (8.6-10.3); CARBON DIOXIDE 23.5 mEq/L (21.0-31.0); CHLORIDE 105 mEq/L (98-107); CREATININE - SERUM 0.7 mg/dL (0.6-1.2); GLUCOSE 94 mg/dL (70-105); POTASSIUM SERUM 3.9 mEq/L (3.5-5.1); SODIUM SERUM 136 mEq/L (136-145)
[2018-09-09] MEDS: Pantoprazole 40 mg EC Tab PO SCH (06:48)
[2018-09-09] MEDS: Calcium Carb/Vit D 500 mg/200 U Tab PO SCH (08:11)
[2018-09-09] MEDS: Multivitamin Tab PO SCH (08:11)
[2018-09-09] MEDS: Lactobacillus Rhamnosus GG 15 Billion CFU CAP.SPRINK PO SCH (08:12)
--- NOTE | 2018-09-13 00:30 | Discharge Summary ---
DATE OF DISCHARGE: 09/09/2018 FINAL DIAGNOSES: 1. Multidrug resistant ESBL E. coli urinary tract infection on IVPB gentamicin. 2. Altered level of consciousness improved. 3. Chronic obstructive pulmonary disease, RT protocol. 4. Vomiting, resolved. 5. Leukopenia, stable and appropriately related to psychiatric medications. 6. Psychosis, controlled. 7. Alzheimer disease. 8. Chronic pain syndrome. HOSPITAL COURSE: The patient is an 83-year-old female admitted due to severe urinary tract infection, altered level of consciousness, vomiting and severe weakness as well as COPD. The patient's white count was low, but on repeat test it was the same, probably due to some psychiatric medications. The patient's urine culture grew multidrug resistant ESBL E. coli, antibiotics was changed to gentamicin. The patient was accepted to [facility]. DISCHARGE CONDITION: Stable. DISPOSITION: [facility]. DISCHARGE MEDICATIONS: Continue medication from here. DIET: Continue current diet. ACTIVITY: Bed rest with physical therapy. FOLLOWUP: [facility] in [place]. JOB# [id number]
== END 2018-09-09 19:10 | DRG 689 ==
LOC: ER 04:05 → TELE 06:35
PROVIDERS: ADMIT Internal Medicine; ATTEND Internal Medicine
DX: N39.0 Urinary tract infection, site not specified (principal); G93.41 Metabolic encephalopathy; I10 Essential (primary) hypertension; E78.5 Hyperlipidemia, unspecified; J44.9 Chronic obstructive pulmonary disease, unspecified; K21.9 Gastro-esophageal reflux disease without esophagitis; K27.9 Peptic ulcer, site unspecified, unspecified as acute or chronic, without hemorrhage or perforation; M19.90 Unspecified osteoarthritis, unspecified site; F31.9 Bipolar disorder, unspecified; D64.9 Anemia, unspecified; R31.9 Hematuria, unspecified; K52.9 Noninfective gastroenteritis and colitis, unspecified; K29.70 Gastritis, unspecified, without bleeding; G30.9 Alzheimer's disease, unspecified; F02.80 Dementia in other diseases classified elsewhere, unspecified severity, without behavioral disturbance, psychotic disturbance, mood disturbance, and anxiety; G89.4 Chronic pain syndrome; F41.9 Anxiety disorder, unspecified; B96.20 Unspecified Escherichia coli [E. coli] as the cause of diseases classified elsewhere; Z16.24 Resistance to multiple antibiotics; Z88.0 Allergy status to penicillin; Z82.49 Family history of ischemic heart disease and other diseases of the circulatory system
CPT/HCPCS: 36415-UA; 71045-TC; 80048-TC; 80053-TC; 80061-TC; 81001-TC; 82150-TC; 82550-TC; 83690-TC; 83880-TC; 84484-TC; 85025-TC; 85610-TC; 87086-90; 93005; 94640; 94760; J1580; J1956; J7030; Z7610